=== PATIENT | female | born 1935 | race Caucasian/White ===

== ENCOUNTER → 2016-06-22 | Outpatient (CLI) | payer MEDICARE, OTHER | LOC: RAD 14:39 | PROVIDERS: ATTEND Internal Medicine | DX: C34.32 Malignant neoplasm of lower lobe, left bronchus or lung (principal) | CPT/HCPCS: 78815; A9552 ==

== ENCOUNTER 2016-08-11 08:36 | Observation (INO) | payer MEDICARE, OTHER ==
[2016-08-11] MEDS ORDERED: NORMAL SALINE 1000 ML 1,000 ML IV ONE ×2 (09:15→10:01)
--- NOTE | 2016-08-11 09:18 | ER Document Report ---
ED General - General Chief Complaint: Trouble Voiding Stated Complaint: UNABLE TO VOID Time seen by provider: 09:15 Mode of Arrival: Ambulatory Information source: Patient Notes: 80-year-old female with 2 week history of generalized weakness and nausea poor appetite 13 pound weight loss nonproductive cough and malaise. She also reports this morning having urinary urgency frequency and small volumes. Patient is status post chemotherapy for lymphoma which she says was cured. She also received chemotherapy for lung cancer and is currently receiving immunotherapy with Dr. Isatu LEO. She reports her last PET scan looks stable. She received IV fluids at the office of days ago which she said made her feel better for about a day and then she felt worse again. She has medicine at home for nausea and also been prescribed something for poor appetite but she says that has not helped. She denies fever, chills, vomiting, chest pain, abdominal pain, or back pain. Physical Exam: General: Alert, appears well. HEENT: Normocephalic. Atraumatic. PERRLA. Extraocular movements intact. Oropharynx clear. Neck: Supple. Non-tender. No JVD Respiratory: No respiratory distress. Clear and equal breath sounds bilaterally. Right chest port appears healthy Cardiovascular: Tachycardic and irregular without murmur Abdominal: Normal Inspection. Soft, non-tender. No distension. Normal Bowel Sounds. Back: Non-tender. No deformity or step off. Extremities: Moves all four extremities. Upper extremities: Normal inspection. Non-tender. Normal color. Normal ROM. Normal temperature. Lower extremities: Normal inspection. Non-tender. No edema. Normal color. Normal ROM. Normal temperature. Neurological: Speech clear mentation normal moves all extremities well Psychological: Normal affect. Normal Mood. Skin: Warm. Dry. Normal color. TRAVEL OUTSIDE OF THE [place] IN LAST 30 DAYS: No - Related Data Allergies/Adverse Reactions: No Known Allergies Allergy (Verified 12/18/15 09:38) Past Medical History - Social History Smoking Status: Former Smoker Family History: None - Past Medical History Cardiac Medical History: Reports: Hx Hypertension - on meds Denies: Hx Coronary Artery Disease, Hx Heart Attack Pulmonary Medical History: Denies: Hx Asthma, Hx Bronchitis, Hx COPD, Hx Pneumonia Neurological Medical History: Denies: Hx Cerebrovascular Accident, Hx Seizures GI Medical History: Reports: Hx Hepatitis - FROM BLOOD TRANSFUSION . Denies: Hx Hiatal Hernia, Hx Ulcer Musculoskeltal Medical History: Reports Hx Arthritis - min Infectious Medical History: Reports: Hx Hepatitis - FROM BLOOD TRANSFUSION Past Surgical History: Reports: Hx Appendectomy, Hx Hysterectomy, Hx Orthopedic Surgery - spinal. Denies: Hx Mastectomy, Hx Open Heart Surgery, Hx Pacemaker - Immunizations Hx Diphtheria, Pertussis, Tetanus Vaccination: Yes Hx Pneumococcal Vaccination: 03/08/15 Review of Systems - Review of Systems Constitutional: denies: Chills, Fever EENT: denies: Ear pain, Throat pain Cardiovascular: denies: Chest pain, Syncope Respiratory: Cough. denies: Short of breath Gastrointestinal: denies: Abdominal pain, Diarrhea, Blood in vomit, Black stools , Rectal bleeding Genitourinary: See HPI Female Genitourinary: denies: Musculoskeletal: denies: Back pain Hematologic/Lymphatic: denies: Swollen glands Neurological/Psychological: denies: Weakness, Numbness Physical Exam - Vital signs Vitals: Pulse Resp BP Pulse Ox 102 H 20 143/87 H 96 08/11/16 08:44 08/11/16 08:44 08/11/16 08:44 08/11/16 08:44 Course - Re-evaluation Re-evalutation: 08/11/16 13:28 Patient's presenting symptoms or urinary urgency and frequency but I find no evidence for UTI. She also reports small volumes with the plan may be dehydrated. She was noted on initial presentation be tachycardic and irregular an EKG showed A. fib RVR which spontaneously converted to a sinus tachycardia. However the patient then had recurrent atrial fibrillation and was started on IV Cardizem and on IV Cardizem has not converted back to sinus rhythm at 113. She has not been symptomatic with this at any point that I think some of her recent weakness and malaise may be silent A. fib. She is on Pletal but no other anticoagulation. A prior history of irregular heartbeat or cardiac problems. Have consult to Dr. Edouard of hospital service will be coming to see patient - Vital Signs Vital signs: Temp Pulse Resp BP Pulse Ox 102 H 20 143/87 H 96 08/11/16 08:44 08/11/16 09:05 08/11/16 08:44 08/11/16 08:44 - Laboratory Result Diagrams: 08/11/16 10:56 08/11/16 10:56 Laboratory results interpreted by me: 08/11/16 08/11/16 10:56 10:56 WBC 12.1 H RDW 15.1 H Seg Neutrophils % 79.0 H Lymphocytes % 11.4 L Absolute Neutrophils 9.6 H Carbon Dioxide 20 L Creatine Kinase 25 L - Diagnostic Test Radiology reviewed: Image reviewed, Reports reviewed - EKG Interpretation by Me Additional EKG results interpreted by me: 08/11/16 13:27 EKG #1 reviewed by myself shows atrial fibrillation ventricular rate of [address] changes Repeat EKG shows sinus tachycardia 106 but no acute changes third EKG shows atrial fibrillation with ventricular rate of [address] changes Discharge - Discharge Clinical Impression: Atrial fibrillation with rapid ventricular response Primary malignant neoplasm of lung metastatic to other site Qualifiers: Laterality: unspecified laterality Qualified Code(s): C34.90 - Malignant neoplasm of unspecified part of unspecified bronchus or lung Condition: Serious Disposition: ADMITTED INPATIENT Unit Admitted: Telemetry
[2016-08-11 10:27] LABS: APPEARANCE,URINE CLEAR; BILIRUBIN,URINE NEGATIVE (NEGATIVE); GLUCOSE, URINE NEGATIVE (NEGATIVE); KETONES,URINE NEGATIVE (NEGATIVE); LEUKOCYTE ESTERASE,URINE NEGATIVE (NEGATIVE); NITRITE,URINE NEGATIVE (NEGATIVE); PROTEIN,URINE NEGATIVE (NEGATIVE); URINE SPECIFIC GRAVITY 1.011; UROBILINOGEN,URINE NEGATIVE mg/dL (<2.0)
[2016-08-11 11:31] LABS: ABSOLUTE BASOPHILS # (AUTO) 0.1 10^3/uL (0.0-0.2); ABSOLUTE EOSINOPHILS # (AUTO) 0.1 10^3/uL (0.0-0.6); ABSOLUTE LYMPHOCYTES (AUTO) 1.4 10^3/uL (0.5-4.7); ABSOLUTE NEUT (AUTO) 9.6 10^3/uL (1.7-8.2); EOSINOPHILS % (AUTO) 0.5 % (0-6); HEMATOCRIT 36.1 % (36.0-47.0); HGB HCT DIFFERENCE -0.1; LYMPHOCYTES % (AUTO) 11.4 % (13-45); MEAN CORPUSCULAR HEMOGLOBIN 29.6 pg (27.0-33.4); MEAN CORPUSCULAR HGB CONC 33.3 g/dL (32.0-36.0); MEAN CORPUSCULAR VOLUME 89 fl (80-97); MONOCYTES % (AUTO) 8.1 % (3-13); RED BLOOD COUNT 4.05 10^6/uL (3.72-5.28); RED CELL DISTRIBUTION WIDTH 15.1 % (11.5-14.0); WHITE BLOOD COUNT 12.1 10^3/uL (4.0-10.5)
[2016-08-11 11:56] LABS: ALANINE AMINOTRANSFERASE 24 U/L (9-52); ALBUMIN 3.7 g/dL (3.5-5.0); ALKALINE PHOSPHATASE 58 U/L (38-126); ANION GAP 13 (5-19); ASPARTATE AMINO TRANSFERASE 17 U/L (14-36); BILIRUBIN,TOTAL 0.5 mg/dL (0.2-1.3); BLOOD UREA NITROGEN 14 mg/dL (7-20); CALCIUM 9.1 mg/dL (8.4-10.2); CARBON DIOXIDE 20 mmol/L (22-30); CHLORIDE 107 mmol/L (98-107); CREATINE KINASE 25 U/L (30-135); CREATININE RESULT 0.61 mg/dL (0.52-1.25); GLUCOSE 86 mg/dL (75-110); LIPASE 40.6 U/L (23-300); MAGNESIUM 1.8 mg/dL (1.6-2.3); POTASSIUM 4.3 mmol/L (3.6-5.0); SODIUM 139.9 mmol/L (137-145); TOTAL PROTEIN 6.4 g/dL (6.3-8.2)
[2016-08-11 12:02] LABS: CREATINE KINASE MB 0.38 ng/mL (<4.55)
[2016-08-11] MEDS ORDERED: MAGNESIUM SULFATE/D5W 100 ML IV ONE (12:02)
[2016-08-11 12:07] LABS: TROPONIN I < 0.012 ng/mL
[2016-08-11] MEDS ORDERED: DILTIAZEM HCL INJ 25 MG/5 ML VIAL IV ONE (13:00)
[2016-08-11] MEDS ORDERED: DILTIAZEM HCL/D5W 125 ML IV PRN (13:00)
[2016-08-11] MEDS ORDERED: ACETAMINOPHEN 325 MG TABLET PO PRN (14:17)
[2016-08-11] MEDS ORDERED: ONDANSETRON 4 MG TAB.RAPDIS PO PRN (14:17)
[2016-08-11] MEDS ORDERED: ONDANSETRON HCL INJ/PF 4 MG/2 ML SDV IV PRN (14:17)
--- NOTE | 2016-08-11 14:37 | PDOC H&P ---
History of Present Illness Admission Date/PCP: 08/11/16 14:10 ALLISON ANDRES MD Patient complains of: Difficulty urinating History of Present Illness: ALIN MENDIOLA is a 80 year old female who has metastatic adenocarcinoma of the lung who presented with 2 weeks of feeling poorly with being dizzy and having generalized fatigue. The patient reports that she was in her oncologist office last Thursday and received IV fluids. She presented to the emergency room today because she was unable to urinate and felt there was something wrong. After she was seen by the emergency room physician it was noted that she had a heart rate of 170 and was in atrial fibrillation with rapid ventricular rate. Patient was started on diltiazem drip and has converted into a normal sinus rhythm. The patient denies having any sensation of the tachycardia. Denies any palpitations or chest pain. Denies orthopnea, PND or dyspnea on exertion. She is getting chemotherapy in the form of immunotherapy by Dr. Andres and is due for her next chemotherapy on Thursday. Past Medical History Cardiac Medical History: Reports: Hypertension - on meds Denies: Coronary Artery Disease, Myocardial Infarction Pulmonary Medical History: Denies: Asthma, Bronchitis, Chronic Obstructive Pulmonary Disease (COPD), Pneumonia EENT Medical History: Reports: None Neurological Medical History: Denies: Seizures Endocrine Medical History: Reports: Hypothyroidism Renal/ Medical History: Reports: None Malignancy Medical History: Reports: Lung Cancer, Lymphoma, Skin Cancer GI Medical History: Reports: Hepatitis - FROM BLOOD TRANSFUSION Denies: Hiatal Hernia Musculoskeltal Medical History: Reports: Arthritis - min Psychiatric Medical History: Reports: None Hematology: Reports: Anemia - RECENT IV IRON Denies: Sickle Cell Disease Infectious Medical History: Reports: None Past Surgical History Past Surgical History: Reports: Appendectomy, Hysterectomy, Orthopedic Surgery - spinal Denies: Amputation, Pacemaker Social History Information Source: Patient Lives with: Family Smoking Status: Former Smoker Frequency of Alcohol Use: None Hx Recreational Drug Use: No Drugs: None - Advance Directive Resuscitation Status: Do Not Resuscitate Family History Family History: Mother at age 88 and had Alzheimer's disease. Father at age 80 from unknown causes. Parental Family History Reviewed: Yes Children Family History Reviewed: No Sibling(s) Family History Reviewed.: No Medication/Allergy Home Medications: Cilostazol [Pletal 100 Mg Tablet] 100 mg PO BID 03/25/12 Levothyroxine Sodium [Synthroid 0.075 mg Tablet] 0.075 mg PO DAILY 03/25/12 Lisinopril [Prinivil] 20 mg PO DAILY 12/18/15 Allergies/Adverse Reactions: No Known Allergies Allergy (Verified 12/18/15 09:38) Review of Systems Constitutional: PRESENT: fatigue, weakness, weight loss. ABSENT: anorexia, fever(s), headache(s), night sweats Eyes: ABSENT: visual disturbances Ears: ABSENT: hearing changes Cardiovascular: PRESENT: as per HPI Respiratory: PRESENT: cough. ABSENT: dyspnea, hemoptysis, sputum Gastrointestinal: ABSENT: abdominal pain, constipation, diarrhea, hematemesis, hematochezia, nausea, vomiting Genitourinary: PRESENT: difficulty urinating Musculoskeletal: PRESENT: back pain Integumentary: ABSENT: rash, wounds Neurological: ABSENT: abnormal gait, abnormal speech, confusion, dizziness, focal weakness, syncope Psychiatric: ABSENT: anxiety, depression Endocrine: ABSENT: cold intolerance, heat intolerance, polydipsia, polyuria Hematologic/Lymphatic: ABSENT: easy bleeding, easy bruising Physical Exam Vital Signs: Temp Pulse Resp BP Pulse Ox 102 H 22 H 151/79 H 97 08/11/16 08:44 08/11/16 13:37 08/11/16 13:37 08/11/16 13:37 General appearance: PRESENT: no acute distress, well-developed, well-nourished Head exam: PRESENT: atraumatic, normocephalic Eye exam: PRESENT: conjunctiva pink, EOMI, PERRLA. ABSENT: scleral icterus Ear exam: PRESENT: normal external ear exam Mouth exam: PRESENT: moist, tongue midline Neck exam: ABSENT: carotid bruit, JVD, lymphadenopathy, thyromegaly Respiratory exam: PRESENT: clear to auscultation ranjeet. ABSENT: rales, rhonchi, wheezes Cardiovascular exam: PRESENT: RRR. ABSENT: diastolic murmur, rubs, systolic murmur Pulses: PRESENT: normal dorsalis pedis pul Vascular exam: PRESENT: normal capillary refill GI/Abdominal exam: PRESENT: normal bowel sounds, soft. ABSENT: distended, guarding, mass, organolmegaly, rebound, tenderness Rectal exam: PRESENT: deferred Extremities exam: ABSENT: calf tenderness, clubbing, pedal edema Neurological exam: PRESENT: alert, awake, oriented to person, oriented to place , oriented to time, oriented to situation, CN II-XII grossly intact. ABSENT: motor sensory deficit Psychiatric exam: PRESENT: appropriate affect, normal mood Skin exam: PRESENT: dry, intact, warm. ABSENT: cyanosis, rash Results Impressions: Chest X-Ray 08/11/16 09:14 IMPRESSION: NO ACUTE RADIOGRAPHIC FINDING IN THE CHEST. Assessment & Plan - Diagnosis (1) Atrial fibrillation with RVR Is this a current diagnosis for this admission?: YesPlan: Patient presented with urinary hesitancy and had no complaints related to her atrial fibrillation other than fatigue. The patient was started on diltiazem drip and has converted to normal sinus rhythm. We will DC the diltiazem drip and start on oral Cardizem at 30 mg every 6 hours. If she remains a normal sinus rhythm overnight we'll plan for discharge home tomorrow. We'll check serial cardiac enzymes to make certain she has not had an acute cardiac event. We'll also start the patient on Xarelto. (2) Metastatic lung cancer (metastasis from lung to other site) Qualifiers: Laterality: unspecified laterality Qualified Code(s): C34.90 - Malignant neoplasm of unspecified part of unspecified bronchus or lung Is this a current diagnosis for this admission?: YesPlan: Patient has been getting immunotherapy with Dr. Andres (3) Lymphoma Is this a current diagnosis for this admission?: YesPlan: Patient has a history of lymphoma in the past. (4) Hypertension Is this a current diagnosis for this admission?: YesPlan: We'll continue with her lisinopril she's been taking as an outpatient in addition she'll take the diltiazem. (5) Hypothyroidism Is this a current diagnosis for this admission?: YesPlan: Continue with Synthroid (6) Urinary hesitancy Is this a current diagnosis for this admission?: YesPlan: The patient's presenting complaint was urinary hesitancy. Her urinalysis looks fine and we will observe overnight. If She continues to have problems we can consult urology as an outpatient. - Time Time Spent: 50 to 70 Minutes - Plan Summary Plan Summary: Will admit as observation as I anticipate this will require less than a 2 midnight hospital stay
[2016-08-11] MEDS: DILTIAZEM HCL 30 MG TABLET PO SCH ×2 (14:52→20:41)
[2016-08-11] MEDS ORDERED: LISINOPRIL 10 MG TABLET PO ONE (15:00)
[2016-08-11] MEDS: CILOSTAZOL 100 MG TABLET PO SCH (16:38)
[2016-08-11] MEDS ORDERED: RIVAROXABAN 10 MG TABLET PO SCH (17:00)
[2016-08-11] MEDS ORDERED: RIVAROXABAN 15 MG TABLET PO SCH (17:00)
--- NOTE | 2016-08-11 17:06 | PDOC CONSULTATION ---
Consultation Consult Date: 08/11/16 Attending physician:: OSVALDO LU Consult reason:: Pt here w/ AFIB w/ RVR w/ known hx of stage IV lung ca History of Present Illness Admission Date/PCP: 08/11/16 14:10 ALLISON ANDRES MD Patient complains of: Fatigue, SOB, tachycardia History of Present Illness: 80-year-old female with known history of stage IV lung cancer, she has been on immunotherapy with OPDIVO, tolerating that well. At times is had hypomagnesemia , treated with IV magnesium. This is been caused by the drug at times. She does have bone metastasis. She's been doing very well with treatment, getting a good clinical response thus far. 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 Over the last 2 week she's been having increasing fatigue, initially I felt this was immunotherapy affect, but this morning she got up and really couldn't take even a few steps without severe fatigue, so her daughter brought her in to [facility] care. Here, she was found to be in A. fib with RVR, she was given IV diltiazem, and soon she was brought into a normal sinus rhythm, she's been placed on oral Cardizem now, and there monitoring her closely. Past Medical History Cardiac Medical History: Reports: Hypertension - on meds Denies: Coronary Artery Disease, Myocardial Infarction Pulmonary Medical History: Denies: Asthma, Bronchitis, Chronic Obstructive Pulmonary Disease (COPD), Pneumonia EENT Medical History: Reports: None Neurological Medical History: Denies: Seizures Endocrine Medical History: Reports: Hypothyroidism Renal/ Medical History: Reports: None Malignancy Medical History: Reports: Lung Cancer, Lymphoma, Skin Cancer GI Medical History: Reports: Hepatitis - FROM BLOOD TRANSFUSION Denies: Hiatal Hernia Musculoskeltal Medical History: Reports: Arthritis - min Psychiatric Medical History: Reports: None Hematology: Reports: Anemia - RECENT IV IRON Denies: Sickle Cell Disease Infectious Medical History: Reports: None Past Surgical History Past Surgical History: Reports: Appendectomy, Hysterectomy, Orthopedic Surgery - spinal Denies: Amputation, Mastectomy, Pacemaker Social History Lives with: Family Smoking Status: Former Smoker Frequency of Alcohol Use: None Hx Recreational Drug Use: No Drugs: None - Advance Directive Resuscitation Status: Do Not Resuscitate Family History Family History: None Parental Family History Reviewed: Yes Children Family History Reviewed: Yes Sibling(s) Family History Reviewed.: Yes Medication/Allergy Home Medications: Cilostazol [Pletal 100 mg Tablet] 100 mg PO Q12 08/11/16 Hydrocodone/Acetaminophen [[place] 5-325 mg Tablet] 1 tab PO Q6HP PRN 08/11/16 Levothyroxine Sodium [Synthroid 0.075 mg Tablet] 75 mcg PO DAILY 08/11/16 Lisinopril [Prinivil 10 mg Tablet] 10 mg PO DAILY 08/11/16 Allergies/Adverse Reactions: No Known Allergies Allergy (Verified 12/18/15 09:38) Review of Systems Constitutional: PRESENT: fatigue, weakness Cardiovascular: PRESENT: palpitations Gastrointestinal: ABSENT: abdominal pain, constipation, diarrhea, hematemesis, hematochezia, nausea, vomiting Musculoskeletal: PRESENT: muscle weakness, other - Hip pain Neurological: ABSENT: abnormal gait, abnormal speech, confusion, dizziness, focal weakness, syncope Physical Exam Vital Signs: Temp Pulse Resp BP Pulse Ox 97.8 F 97 16 175/76 H 100 08/11/16 16:11 08/11/16 16:11 08/11/16 16:11 08/11/16 16:11 08/11/16 16:11 General appearance: PRESENT: no acute distress, well-developed, well-nourished Head exam: PRESENT: atraumatic, normocephalic Eye exam: PRESENT: conjunctiva pink, EOMI, PERRLA. ABSENT: scleral icterus Ear exam: PRESENT: normal external ear exam Mouth exam: PRESENT: moist, tongue midline Neck exam: ABSENT: carotid bruit, JVD, lymphadenopathy, thyromegaly Respiratory exam: PRESENT: clear to auscultation ranjeet. ABSENT: rales, rhonchi, wheezes Cardiovascular exam: PRESENT: RRR. ABSENT: diastolic murmur, rubs, systolic murmur Pulses: PRESENT: normal dorsalis pedis pul Vascular exam: PRESENT: normal capillary refill GI/Abdominal exam: PRESENT: normal bowel sounds, soft. ABSENT: distended, guarding, mass, organolmegaly, rebound, tenderness Rectal exam: PRESENT: deferred Extremities exam: PRESENT: full ROM. ABSENT: calf tenderness, clubbing, pedal edema Neurological exam: PRESENT: alert, awake, oriented to person, oriented to place , oriented to time, oriented to situation, CN II-XII grossly intact. ABSENT: motor sensory deficit Psychiatric exam: PRESENT: appropriate affect, normal mood. ABSENT: homicidal ideation, suicidal ideation Skin exam: PRESENT: dry, intact, warm. ABSENT: cyanosis, rash Results Impressions: Chest X-Ray 08/11/16 09:14 IMPRESSION: NO ACUTE RADIOGRAPHIC FINDING IN THE CHEST. Assessment & Plan - Diagnosis (1) Atrial fibrillation with RVR Is this a current diagnosis for this admission?: YesPlan: Probably unrelated the immunotherapy, the only issue would be that she does get hypomagnesemic with immunotherapy, but all the chemistry seems stable when she came in. Continue per hospitalist team. (2) Metastatic lung cancer (metastasis from lung to other site) Qualifiers: Laterality: left Qualified Code(s): C34.92 - Malignant neoplasm of unspecified part of left bronchus or lung Is this a current diagnosis for this admission?: YesPlan: Stage IV lung cancer, on immunotherapy, she is due for immunotherapy this week but we will make arrangements to treat her next week. - Time Time Spent: Greater than 70 Minutes Critical Time spent with patient: 35 or more minutes - Inpatient Certification Based on my medical assessment, after consideration of the patient's comorbidities, presenting symptoms, or acuity I expect that the services needed warrant INPATIENT care.: Yes I certify that my determination is in accordance with my understanding of Medicare's requirements for reasonable and necessary INPATIENT services [42 CFR 412.3e].: Yes Medical Necessity: Need For Continuous Telemetry Monitoring
[2016-08-11 18:41] LABS: TROPONIN I < 0.012 ng/mL
[2016-08-11] MEDS: HYDROCODONE/ACETAMINOPHEN 5-325 MG TABLET PO PRN (20:40)
--- NOTE | 2016-08-11 20:50 | EKG REPORT ---
SEVERITY:- ABNORMAL ECG - ATRIAL FIBRILLATION WITH RAPID V-RATE LOW VOLTAGE THROUGHOUT BORDERLINE T ABNORMALITIES, INFERIOR LEADS : Confirmed by: Fatuma Avalos 11-Aug-2016 20:50:02
--- NOTE | 2016-08-11 20:51 | EKG REPORT ---
SEVERITY:- ABNORMAL ECG - SINUS TACHYCARDIA PROBABLE LEFT ATRIAL ABNORMALITY LOW VOLTAGE THROUGHOUT BORDERLINE T ABNORMALITIES, INFERIOR LEADS : Confirmed by: Fatuma Avalos 11-Aug-2016 20:50:14
--- NOTE | 2016-08-11 20:51 | EKG REPORT ---
SEVERITY:- ABNORMAL ECG - ATRIAL FIBRILLATION WITH RAPID V-RATE : Confirmed by: Fatuma Avalos 11-Aug-2016 20:50:23
[2016-08-11 23:29] LABS: TROPONIN I < 0.012 ng/mL
[2016-08-12] MEDS: DILTIAZEM HCL 30 MG TABLET PO SCH ×2 (02:30→09:00)
[2016-08-12 03:13] LABS: CREATINE KINASE MB 0.38 ng/mL (<4.55)
[2016-08-12 03:14] LABS: TROPONIN I < 0.012 ng/mL
[2016-08-12] MEDS: HYDROCODONE/ACETAMINOPHEN 5-325 MG TABLET PO PRN (05:14)
[2016-08-12 05:50] LABS: HEMATOCRIT 29.7 % (36.0-47.0); HGB HCT DIFFERENCE 0.9; MEAN CORPUSCULAR HEMOGLOBIN 30.6 pg (27.0-33.4); MEAN CORPUSCULAR HGB CONC 34.2 g/dL (32.0-36.0); MEAN CORPUSCULAR VOLUME 90 fl (80-97); RED BLOOD COUNT 3.32 10^6/uL (3.72-5.28); WHITE BLOOD COUNT 8.3 10^3/uL (4.0-10.5)
[2016-08-12 06:01] LABS: HEMOGLOBIN 10.2 g/dL (12.0-15.5)
[2016-08-12 06:03] LABS: ANION GAP 9 (5-19); BLOOD UREA NITROGEN 9 mg/dL (7-20); CALCIUM 8.4 mg/dL (8.4-10.2); CARBON DIOXIDE 20 mmol/L (22-30); CHLORIDE 113 mmol/L (98-107); CREATININE RESULT 0.59 mg/dL (0.52-1.25); GLUCOSE 91 mg/dL (75-110); MAGNESIUM 1.9 mg/dL (1.6-2.3); POTASSIUM 3.9 mmol/L (3.6-5.0); SODIUM 141.7 mmol/L (137-145)
--- NOTE | 2016-08-12 07:52 | PDOC PROGRESS REPORT ---
Subjective Progress Note for:: 08/12/16 Subjective:: Pt feels great this am, ready to d/c home, no further afib Physical Exam Vital Signs: Temp Pulse Resp BP Pulse Ox 98.3 F 83 18 127/64 H 98 08/12/16 04:00 08/12/16 04:00 08/12/16 04:00 08/12/16 04:00 08/12/16 04:00 Intake & Output 08/11/16 08/12/16 08/13/16 06:59 06:59 06:59 Intake Total 505 Output Total 5 Balance 500 Weight 46.7 kg General appearance: PRESENT: no acute distress, well-developed, well-nourished Head exam: PRESENT: atraumatic, normocephalic Eye exam: PRESENT: conjunctiva pink, EOMI, PERRLA. ABSENT: scleral icterus Ear exam: PRESENT: normal external ear exam Mouth exam: PRESENT: moist, tongue midline Neck exam: ABSENT: carotid bruit, JVD, lymphadenopathy, thyromegaly Respiratory exam: PRESENT: clear to auscultation ranjeet. ABSENT: rales, rhonchi, wheezes Cardiovascular exam: PRESENT: RRR. ABSENT: diastolic murmur, rubs, systolic murmur Pulses: PRESENT: normal dorsalis pedis pul Vascular exam: PRESENT: normal capillary refill GI/Abdominal exam: PRESENT: normal bowel sounds, soft. ABSENT: distended, guarding, mass, organolmegaly, rebound, tenderness Rectal exam: PRESENT: deferred Extremities exam: PRESENT: full ROM. ABSENT: calf tenderness, clubbing, pedal edema Neurological exam: PRESENT: alert, awake, oriented to person, oriented to place , oriented to time, oriented to situation, CN II-XII grossly intact. ABSENT: motor sensory deficit Psychiatric exam: PRESENT: appropriate affect, normal mood. ABSENT: homicidal ideation, suicidal ideation Skin exam: PRESENT: dry, intact, warm. ABSENT: cyanosis, rash Results Laboratory Results: 08/12/16 05:17 08/12/16 05:17 08/12/16 08/12/16 05:17 05:17 WBC 8.3 RBC 3.32 L Hgb 10.2 L Hct 29.7 L MCV 90 MCH 30.6 MCHC 34.2 RDW 15.0 H Plt Count 295 Sodium 141.7 Potassium 3.9 Chloride 113 H Carbon Dioxide 20 L Anion Gap 9 BUN 9 Creatinine 0.59 Est GFR ( Amer) > 60 Est GFR (Non-Af Amer) > 60 Glucose 91 Calcium 8.4 Magnesium 1.9 08/11/16 08/11/16 08/11/16 17:55 17:55 22:50 Creatine Kinase 25 L 27 L CK-MB (CK-2) 0.30 Troponin I < 0.012 08/11/16 08/12/16 08/12/16 22:50 02:37 02:37 Creatine Kinase 26 L CK-MB (CK-2) 0.40 0.38 Troponin I < 0.012 < 0.012 Impressions: Chest X-Ray 08/11/16 09:14 IMPRESSION: NO ACUTE RADIOGRAPHIC FINDING IN THE CHEST. Assessment & Plan - Diagnosis (1) Atrial fibrillation with RVR Is this a current diagnosis for this admission?: YesPlan: Seems well controlled on cardizem, pt also has been started on xarelto for stroke prevention, should be able to d/c home on oral cardizem today per hospitalist team (2) Metastatic lung cancer (metastasis from lung to other site) Qualifiers: Laterality: left Qualified Code(s): C34.92 - Malignant neoplasm of unspecified part of left bronchus or lung Is this a current diagnosis for this admission?: YesPlan: Will see us next week for continued immunotx w/ OPDIVO, will not need OV this week with us. - Time Time Spent with patient: 25-34 minutes Critical Time spent with patient: 25-34 minutes Anticipated discharge: Home
[2016-08-12] MEDS ORDERED: LEVOTHYROXINE SODIUM 0.075 MG TABLET PO SCH (08:00)
[2016-08-12] MEDS: CILOSTAZOL 100 MG TABLET PO SCH (09:01)
[2016-08-12] MEDS ORDERED: (PENDING PHARMACY ID) (Lisinopril [Prinivil] 10 MG) PO SCH (10:00)
[2016-08-12] MEDS ORDERED: LISINOPRIL 10 MG TABLET PO SCH (10:00)
--- NOTE | 2016-08-12 12:02 | PDOC DISCHARGE SUMMARY ---
General - Admit/Disc Date/PCP Admission Date/Primary Care Provider: 08/11/16 14:10 ALLISON ANDRES MD Discharge Date: 08/12/16 - Discharge Diagnosis (1) Atrial fibrillation with RVR Is this a current diagnosis for this admission?: Yes (2) Anemia of chronic disease Is this a current diagnosis for this admission?: Yes (3) Hypertension Is this a current diagnosis for this admission?: Yes (4) Hypothyroidism Is this a current diagnosis for this admission?: Yes (5) Metastatic lung cancer (metastasis from lung to other site) Is this a current diagnosis for this admission?: Yes - Additional Information Resuscitation Status: Do Not Resuscitate Discharge Diet: Cardiac - low-fat low-salt Discharge Activity: Activity As Tolerated, Balance Activity w/Rest Home Medications: Cilostazol [Pletal 100 mg Tablet] 100 mg PO Q12 08/11/16 Hydrocodone/Acetaminophen [[place] 5-325 mg Tablet] 1 tab PO Q6HP PRN 08/11/16 Levothyroxine Sodium [Synthroid 0.075 mg Tablet] 75 mcg PO DAILY 08/11/16 Lisinopril [Prinivil 10 mg Tablet] 10 mg PO DAILY 08/11/16 Diltiazem HCl [Cardizem Cd 120 mg Capsule] 1 cap.sr PO DAILY #30 cap.sr Rivaroxaban [Xarelto 15 mg Tablet] 15 mg PO WSUPPER #30 tablet 08/12/16 Additional Information: Return to the emergency room if symptoms recur History of Present Illness Patient complains of: Generalized weakness and fatigue, dizziness History of Present Illness: ALIN MENDIOLA is a 80 year old female, with metastatic lung cancer to the bones, hypothyroidism has been feeling unwell for the past 2 weeks with generalized malaise and fatigue. Patient is on chemotherapy with immunotherapy. Patient was last seen by her oncologist last week and in the office nor reported tachycardia. Patient presented in the ER with tachycardia and was given Cardizem and eventually went back to sinus. Patient was started on oral Cardizem, and 15 mg of Xarelto and was subsequently admitted. For details please refer to history and physical examination performed by the admitting physician. Hospital Course Hospital Course: The patient was admitted to observation. Dr. Andres was consulted for the lung cancer. He does not think that the patient's symptoms were related to the immunotherapy. Patient was in sinus rhythm and all throughout has been stable while in the [place]. He was maintained on oral Cardizem and begun on xarelto. He was therefore counseled and advised about signs and symptoms of bleeding and she understood. Family is at bedside who will also monitor the patient and understood it as well. She wanted to go home today and just continue treatment on an outpatient basis. The rest of the hospital stay is unremarkable. Physical Exam Vital Signs: Temp Pulse Resp BP Pulse Ox 98.3 F 77 18 147/84 H 99 08/12/16 07:24 08/12/16 07:24 08/12/16 07:24 08/12/16 07:24 08/12/16 07:24 Intake & Output 08/11/16 08/12/16 08/13/16 06:59 06:59 06:59 Intake Total 505 Output Total 5 Balance 500 Weight 46.7 kg General appearance: PRESENT: no acute distress, cooperative Head exam: PRESENT: normocephalic Eye exam: PRESENT: EOMI Mouth exam: PRESENT: moist, neck supple Neck exam: ABSENT: JVD Respiratory exam: PRESENT: clear to auscultation rajneet Cardiovascular exam: PRESENT: RRR GI/Abdominal exam: PRESENT: soft. ABSENT: distended, tenderness Extremities exam: ABSENT: pedal edema Neurological exam: PRESENT: alert, awake, oriented to person, oriented to place , oriented to time, oriented to situation Skin exam: PRESENT: dry, warm. ABSENT: cyanosis Results Laboratory Results: 08/12/16 05:17 08/12/16 05:17 08/12/16 08/12/16 05:17 05:17 WBC 8.3 RBC 3.32 L Hgb 10.2 L Hct 29.7 L MCV 90 MCH 30.6 MCHC 34.2 RDW 15.0 H Plt Count 295 Sodium 141.7 Potassium 3.9 Chloride 113 H Carbon Dioxide 20 L Anion Gap 9 BUN 9 Creatinine 0.59 Est GFR ( Amer) > 60 Est GFR (Non-Af Amer) > 60 Glucose 91 Calcium 8.4 Magnesium 1.9 08/11/16 08/11/16 08/11/16 17:55 17:55 22:50 Creatine Kinase 25 L 27 L CK-MB (CK-2) 0.30 Troponin I < 0.012 0308/12/16 08/12/16 22:50 02:37 02:37 Creatine Kinase 26 L CK-MB (CK-2) 0.40 0.38 Troponin I < 0.012 < 0.012 Impressions: Chest X-Ray 08/11/16 09:14 IMPRESSION: NO ACUTE RADIOGRAPHIC FINDING IN THE CHEST. Qualifiers PATEINT BEING DISCHARGED WITH ANY OF THE FOLLOWING DIAGNOSIS?: No Plan Discharge Plan: Follow-up with primary care physician in a week. Time Spent: Less than 30 Minutes
[2016-08-12 12:08] VITALS: BP 175/76
--- NOTE | 2016-08-12 13:01 | EKG REPORT ---
SEVERITY:- BORDERLINE ECG - SINUS RHYTHM ATRIAL PREMATURE COMPLEX SHORT DE INTERVAL, ACCELERATED AV CONDUCTION LOW VOLTAGE IN FRONTAL LEADS : Confirmed by: Fatuma Avalos 12-Aug-2016 12:59:33
== END 2016-08-12 12:27 | disposition home or self-care (01) ==
LOC: ER 08:36 → INTOOBSV 14:10 → EH 14:10 → 3N 15:48
PROVIDERS: ADMIT Family Medicine; ATTEND Family Medicine
PROC: 3E033GC Introduction of Other Therapeutic Substance into Peripheral Vein, Percutaneous Approach (ICD-10-PCS; principal; 2016-08-11)
DX: I48.91 Unspecified atrial fibrillation (principal); D63.8 Anemia in other chronic diseases classified elsewhere; I10 Essential (primary) hypertension; E03.9 Hypothyroidism, unspecified; C34.90 Malignant neoplasm of unspecified part of unspecified bronchus or lung; C79.51 Secondary malignant neoplasm of bone; Z85.72 Personal history of non-Hodgkin lymphomas; Z87.891 Personal history of nicotine dependence; R39.11 Hesitancy of micturition
CPT/HCPCS: 93005 ×2; 99285; 96365; 36415 ×2; 87040; 87086; 82553 ×2; 82550 ×2; 83690; 83735 ×2; 85025; 85027; 80048; 80053; 81001; 84484 ×2; 71020; 93010 ×2; G0378 ×3; A9270 ×10; J3490 ×4; J3475; J7030

== ENCOUNTER 2016-08-26 11:12 | Observation (INO) | payer MEDICARE, OTHER ==
[2016-08-26] MEDS ORDERED: DILTIAZEM HCL/D5W 125 MG/125 ML RTUINJ IV ONE (11:24)
[2016-08-26] MEDS ORDERED: DILTIAZEM HCL INJ 25 MG/5 ML VIAL ONE (11:24)
[2016-08-26 12:28] LABS: ABSOLUTE BASOPHILS # (AUTO) 0.1 10^3/uL (0.0-0.2); ABSOLUTE LYMPHOCYTES (AUTO) 1.1 10^3/uL (0.5-4.7); ABSOLUTE MONOCYTES (AUTO) 0.7 10^3/uL (0.1-1.4); ABSOLUTE NEUT (AUTO) 10.6 10^3/uL (1.7-8.2); BASOPHILS % (AUTO) 0.9 % (0-2); EOSINOPHILS % (AUTO) 0.3 % (0-6); HEMATOCRIT 36.9 % (36.0-47.0); HEMOGLOBIN 12.4 g/dL (12.0-15.5); HGB HCT DIFFERENCE 0.3; MEAN CORPUSCULAR HEMOGLOBIN 30.1 pg (27.0-33.4); MEAN CORPUSCULAR HGB CONC 33.6 g/dL (32.0-36.0); MEAN CORPUSCULAR VOLUME 90 fl (80-97); MONOCYTES % (AUTO) 5.8 % (3-13); RED BLOOD COUNT 4.12 10^6/uL (3.72-5.28); RED CELL DISTRIBUTION WIDTH 15.3 % (11.5-14.0); WHITE BLOOD COUNT 12.7 10^3/uL (4.0-10.5)
--- NOTE | 2016-08-26 12:35 | ER Document Report ---
ED General - General Chief Complaint: Palpitations Stated Complaint: PALPITATIONS Mode of Arrival: Ambulatory Information source: Patient, Dr. Office Notes: 80 yr old female with hx of afib diagnosed 2 weeks ago started on Cardizem at home with xarelto presents with not feeling well over the past few days, once her power plant superintendent today who noted her heart rate was in the 170s and sent the patient in to the emergency department for evaluation TRAVEL OUTSIDE OF THE [place] IN LAST 30 DAYS: No - HPI Onset: Other - Three-day duration Onset/Duration: Persistent Quality of pain: No pain Severity: Mild Pain Level: Denies Associated symptoms: Other Exacerbated by: Denies Relieved by: Denies Similar symptoms previously: Yes Recently seen / treated by doctor: Yes - Related Data Allergies/Adverse Reactions: No Known Allergies Allergy (Verified 12/18/15 09:38) Past Medical History - Social History Smoking Status: Never Smoker Cigarette use (# per day): No Chew tobacco use (# tins/day): No Smoking Education Provided: No Family History: None - Past Medical History Cardiac Medical History: Reports: Hx Hypertension - on meds Denies: Hx Coronary Artery Disease, Hx Heart Attack Pulmonary Medical History: Denies: Hx Asthma, Hx Bronchitis, Hx COPD, Hx Pneumonia Neurological Medical History: Denies: Hx Cerebrovascular Accident, Hx Seizures Endocrine Medical History: Reports: Hx Hypothyroidism Malignancy Medical History: Reports: Hx Lung Cancer, Hx Lymphoma, Hx Skin Cancer GI Medical History: Reports: Hx Hepatitis - FROM BLOOD TRANSFUSION . Denies: Hx Hiatal Hernia, Hx Ulcer Musculoskeltal Medical History: Reports Hx Arthritis - min Psychiatric Medical History: Reports: Hx Depression Infectious Medical History: Reports: Hx Hepatitis - FROM BLOOD TRANSFUSION Past Surgical History: Reports: Hx Appendectomy, Hx Hysterectomy, Hx Orthopedic Surgery - spinal. Denies: Hx Mastectomy, Hx Open Heart Surgery, Hx Pacemaker - Immunizations Hx Diphtheria, Pertussis, Tetanus Vaccination: Yes Hx Pneumococcal Vaccination: 03/08/15 Review of Systems - Review of Systems Notes: REVIEW OF SYSTEMS: CONSTITUTIONAL : Denies fever, chills, or sweats. Denies recent illness. Admits to not feeling well EENT: Denies eye, ear, throat, or mouth pain or symptoms. Denies nasal or sinus congestion or discharge. Denies throat, tongue, or mouth swelling or difficulty swallowing. CARDIOVASCULAR: Denies chest pain. Denies palpitations or racing or irregular heart beat. Denies ankle edema. RESPIRATORY: Denies cough, cold, or chest congestion. Denies shortness of breath, difficulty breathing, or wheezing. GASTROINTESTINAL: Denies abdominal pain or distention. Denies nausea, vomiting , or diarrhea. Denies blood in vomitus, stools, or per rectum. Denies black, tarry stools. Denies constipation. GENITOURINARY: Denies difficulty urinating, painful urination, burning, frequency, blood in urine, or discharge. FEMALE GENITOURINARY: Denies vaginal bleeding, heavy or abnormal periods, irregular periods. Denies vaginal discharge or odor. MUSCULOSKELETAL: Denies back or neck pain or stiffness. Denies joint pain or swelling. SKIN: Denies rash, lesions or sores. HEMATOLOGIC : Denies easy bruising or bleeding. LYMPHATIC: Denies swollen, enlarged glands. NEUROLOGICAL: Denies confusion or altered mental status. Denies passing out or loss of consciousness. Denies dizziness or lightheadedness. Denies headache. Denies weakness or paralysis or loss of use of either side. Denies problems with gait or speech. Denies sensory loss, numbness, or tingling. Denies seizures. PSYCHIATRIC: Denies anxiety or stress. Denies depression, suicidal ideation, or homicidal ideation. ALL OTHER SYSTEMS REVIEWED AND NEGATIVE. Dictation was performed using [employer] voice recognition software PHYSICAL EXAMINATION: GENERAL: Well-appearing, well-nourished and in no acute distress. HEAD: Atraumatic, normocephalic. EYES: Pupils equal round and reactive to light, extraocular movements intact, conjunctiva are normal. ENT: Nares patent, oropharynx clear without exudates. Moist mucous membranes. NECK: Normal range of motion, supple without lymphadenopathy LUNGS: Breath sounds clear to auscultation bilaterally and equal. No wheezes rales or rhonchi. HEART: A. fib RVR ABDOMEN: Soft, nontender, nondistended abdomen. No guarding, no rebound. No masses appreciated. Female : deferred Musculoskeletal: Normal range of motion, no pitting or edema. No cyanosis. NEUROLOGICAL: Cranial nerves grossly intact. Normal speech, normal gait. Normal sensory, motor exams PSYCH: Normal mood, normal affect. SKIN: Warm, Dry, normal turgor, no rashes or lesions noted. Physical Exam - Vital signs Vitals: Temp Pulse Resp BP Pulse Ox 98.3 F 93 18 110/81 99 08/26/16 11:22 08/26/16 11:22 08/26/16 11:22 08/26/16 11:22 08/26/16 11:22 Course - Re-evaluation Re-evalutation: 08/26/16 12:46 Patient noted to have a heart rate up to 180s, was given a Cardizem bolus which immediately improved her heart rate. I expect this to be uncontrolled A. fib. Patient will be admitted to hospital service for evaluation - Vital Signs Vital signs: Temp Pulse Resp BP Pulse Ox 98.3 F 93 16 95/47 L 94 08/26/16 11:22 08/26/16 11:22 08/26/16 12:36 08/26/16 12:36 08/26/16 12:36 - Laboratory Result Diagrams: 08/26/16 11:40 08/26/16 11:40 Laboratory results interpreted by me: 08/26/16 11:40 WBC 12.7 H RDW 15.3 H Seg Neutrophils % 84.0 H Lymphocytes % 9.0 L Absolute Neutrophils 10.6 H - Diagnostic Test Radiology reviewed: Image reviewed, Reports reviewed - EKG Interpretation by Me EKG shows normal: Sinus rhythm, [place], Intervals, QRS Complexes Rate: Tachycardia Rhythm: A.Fib Critical Care Note - Critical Care Note Total time excluding time spent on procedures (mins): 40 Comments: 40 minutes of critical care time spent in direct contact evaluating and reevaluating the patient, treating symptoms, reviewing labs and studies and speaking with family and consultants excluding any procedures Discharge - Discharge Clinical Impression: Atrial fibrillation with RVR Metastatic lung cancer (metastasis from lung to other site) Qualifiers: Laterality: left Qualified Code(s): C34.92 - Malignant neoplasm of unspecified part of left bronchus or lung Condition: Fair Disposition: ADMITTED INPATIENT Admitting Provider: Hospitalist Unit Admitted: Telemetry
[2016-08-26 12:51] LABS: ALANINE AMINOTRANSFERASE 22 U/L (9-52); ALBUMIN 4.3 g/dL (3.5-5.0); ALKALINE PHOSPHATASE 65 U/L (38-126); ANION GAP 18 (5-19); ASPARTATE AMINO TRANSFERASE 19 U/L (14-36); BILIRUBIN,DIRECT 0.3 mg/dL (0.0-0.4); BILIRUBIN,TOTAL 0.6 mg/dL (0.2-1.3); BLOOD UREA NITROGEN 20 mg/dL (7-20); CALCIUM 9.7 mg/dL (8.4-10.2); CARBON DIOXIDE 20 mmol/L (22-30); CHLORIDE 105 mmol/L (98-107); CREATINE KINASE 25 U/L (30-135); CREATININE RESULT 0.77 mg/dL (0.52-1.25); GLUCOSE 103 mg/dL (75-110); POTASSIUM 4.5 mmol/L (3.6-5.0); SODIUM 143.3 mmol/L (137-145); TOTAL PROTEIN 7.3 g/dL (6.3-8.2)
[2016-08-26 13:04] LABS: CREATINE KINASE MB < 0.22 ng/mL (<4.55); TROPONIN I < 0.012 ng/mL
--- NOTE | 2016-08-26 13:13 | EKG REPORT ---
SEVERITY:- ABNORMAL ECG - ATRIAL FIBRILLATION WITH RAPID V-RATE ABERRANT COMPLEX, POSSIBLY SUPRAVENTRICULAR ST DEPRESSION, PROBABLY RATE RELATED : Confirmed by: Cody Sam MD 26-Aug-2016 13:13:11
[2016-08-26] MEDS ORDERED: HYDROCODONE/ACETAMINOPHEN 5-325 MG TABLET PO PRN (14:36)
[2016-08-26] MEDS ORDERED: ACETAMINOPHEN 325 MG TABLET PO PRN (14:40)
[2016-08-26] MEDS ORDERED: HALOPERIDOL LACTATE INJ 5 MG/1 ML VIAL IV ONE (14:52)
--- NOTE | 2016-08-26 15:10 | PDOC H&P ---
History of Present Illness Admission Date/PCP: 08/26/16 13:03 ALLISON ANDRES MD Patient complains of: Rapid heart rate History of Present Illness: ALIN MENDIOLA is a 80 year old female with metastatic lung cancer, atrial fibrillation, hypertension, COPD, anemia, hypothyroidism that was sent to the emergency department for evaluation of rapid heart rate by her tie mill operator Dr. Li. Patient was recently discharged from [facility] for atrial fibrillation with rapid ventricular response. She was started on Cardizem CD 120 mg daily and Xarelto 15 mg daily. She denies having any bleeding issues with the Xarelto. She states that she has been generally feeling weaker but denies dizziness or syncope. Past Medical History Cardiac Medical History: Reports: Atrial Fibrillation, Hypertension - on meds Denies: Coronary Artery Disease, Myocardial Infarction Pulmonary Medical History: Denies: Asthma, Bronchitis, Chronic Obstructive Pulmonary Disease (COPD), Pneumonia Neurological Medical History: Denies: Seizures Endocrine Medical History: Reports: Hypothyroidism Malignancy Medical History: Reports: Lung Cancer, Lymphoma, Skin Cancer GI Medical History: Reports: Hepatitis - FROM BLOOD TRANSFUSION Denies: Hiatal Hernia Musculoskeltal Medical History: Reports: Arthritis - min Psychiatric Medical History: Reports: Depression Hematology: Reports: Anemia - RECENT IV IRON Denies: Sickle Cell Disease Infectious Medical History: Reports: Hepatitis C Past Surgical History Past Surgical History: Reports: Appendectomy, Hysterectomy, Orthopedic Surgery - spinal, Other - Right chest Port-A-Cath Denies: Amputation, Mastectomy, Pacemaker Social History Information Source: Patient Lives with: Family Smoking Status: Former Smoker Frequency of Alcohol Use: None Hx Recreational Drug Use: No Drugs: None Hx Prescription Drug Abuse: No - Advance Directive Resuscitation Status: Do Not Resuscitate Family History Family History: CVA, Malignancy Parental Family History Reviewed: Yes Children Family History Reviewed: Yes Sibling(s) Family History Reviewed.: Yes Medication/Allergy Home Medications: Cilostazol [Pletal 100 mg Tablet] 100 mg PO Q12 08/26/16 Diltiazem HCl [Cardizem Cd 120 mg Capsule] 120 mg PO DAILY 08/26/16 Folic Acid [Folvite 1 mg Tablet] 1 mg PO DAILY 08/26/16 Hydrocodone/Acetaminophen [[place] 5-325 mg Tablet] 1 tab PO Q6HP PRN 08/26/16 Levothyroxine Sodium [Synthroid 0.075 mg Tablet] 0.075 mcg PO DAILY 08/26/16 Lisinopril [Prinivil 10 mg Tablet] 10 mg PO DAILY 08/26/16 Rivaroxaban [Xarelto 15 mg Tablet] 15 mg PO WSUPPER 08/26/16 Allergies/Adverse Reactions: No Known Allergies Allergy (Verified 12/18/15 09:38) Review of Systems Constitutional: ABSENT: chills, fever(s), headache(s), weight gain, weight loss Eyes: ABSENT: visual disturbances Ears: ABSENT: hearing changes Cardiovascular: ABSENT: chest pain, dyspnea on exertion, edema, orthropnea, palpitations Respiratory: ABSENT: cough, hemoptysis Gastrointestinal: ABSENT: abdominal pain, constipation, diarrhea, hematemesis, hematochezia, nausea, vomiting Genitourinary: ABSENT: dysuria, hematuria Musculoskeletal: ABSENT: joint swelling Integumentary: ABSENT: rash, wounds Neurological: ABSENT: abnormal gait, abnormal speech, confusion, dizziness, focal weakness, syncope Psychiatric: ABSENT: anxiety, depression, homidical ideation, suicidal ideation Endocrine: ABSENT: cold intolerance, heat intolerance, polydipsia, polyuria Hematologic/Lymphatic: ABSENT: easy bleeding, easy bruising Physical Exam Vital Signs: Temp Pulse Resp BP Pulse Ox 98.3 F 93 20 93/51 L 98 08/26/16 11:22 08/26/16 11:22 08/26/16 14:41 08/26/16 14:41 08/26/16 14:41 GENERAL: No acute distress HEENT: Conjunctiva clear, nonicteric, moist mucous membranes, no JVD, midline trachea RESPIRATORY: Clear to auscultation bilaterally, no wheezes, no rhonchi CARDIAC: irregular rhythm, no murmurs/gallops/rubs ABDOMEN: Soft, nondistended, nontender, positive bowel sounds, no rebound, no guarding EXTREMETIES: No edema, cyanosis, clubbing NEUROLOGIC: Alert, oriented to person/place/time, CN's grossly intact, no focal deficits SKIN: No rash, wounds PSYCH: Normal mood, normal affect Results Laboratory Results: Labs- All tests 24 hr 08/26/16 08/26/16 08/26/16 11:40 11:40 11:40 WBC 12.7 H RBC 4.12 Hgb 12.4 Hct 36.9 MCV 90 MCH 30.1 MCHC 33.6 RDW 15.3 H Plt Count 428 Seg Neutrophils % 84.0 H Lymphocytes % 9.0 L Monocytes % 5.8 Eosinophils % 0.3 Basophils % 0.9 Absolute Neutrophils 10.6 H Absolute Lymphocytes 1.1 Absolute Monocytes 0.7 Absolute Eosinophils 0.0 Absolute Basophils 0.1 Sodium 143.3 Potassium 4.5 Chloride 105 Carbon Dioxide 20 L Anion Gap 18 BUN 20 Creatinine 0.77 Est GFR ( Amer) > 60 Est GFR (Non-Af Amer) > 60 Glucose 103 Calcium 9.7 Total Bilirubin 0.6 Direct Bilirubin 0.3 Indirect Bilirubin Not Reportable Neonat Total Bilirubin Not Reportable AST 19 ALT 22 Alkaline Phosphatase 65 Creatine Kinase 25 L CK-MB (CK-2) < 0.22 Troponin I < 0.012 Total Protein 7.3 Albumin 4.3 TSH 08/26/16 11:40 WBC RBC Hgb Hct MCV MCH MCHC RDW Plt Count Seg Neutrophils % Lymphocytes % Monocytes % Eosinophils % Basophils % Absolute Neutrophils Absolute Lymphocytes Absolute Monocytes Absolute Eosinophils Absolute Basophils Sodium Potassium Chloride Carbon Dioxide Anion Gap BUN Creatinine Est GFR ( Amer) Est GFR (Non-Af Amer) Glucose Calcium Total Bilirubin Direct Bilirubin Indirect Bilirubin Neonat Total Bilirubin AST ALT Alkaline Phosphatase Creatine Kinase CK-MB (CK-2) Troponin I Total Protein Albumin TSH 0.74 Assessment & Plan - Diagnosis (1) Atrial fibrillation with RVR Is this a current diagnosis for this admission?: YesPlan: Discontinue Cardizem drip as patient is only on 2.5 mg per hour. Increase Cardizem CD to [address] in observation status and monitor on telemetry overnight. Discharge home in the morning if heart rate remained stable. Patient has a follow-up appointment with her tie mill operator Dr. Li on 09/04/2016. (2) Metastatic lung cancer (metastasis from lung to other site) Qualifiers: Laterality: left Qualified Code(s): C34.92 - Malignant neoplasm of unspecified part of left bronchus or lung Is this a current diagnosis for this admission?: YesPlan: Patient can follow-up with Dr. Andres of oncology after discharge. (3) Anemia of chronic disease Is this a current diagnosis for this admission?: Yes (4) Hypertension Is this a current diagnosis for this admission?: YesPlan: Discontinue lisinopril in order to make room for advancement of Cardizem. (5) Hypothyroidism Is this a current diagnosis for this admission?: YesPlan: Continue Synthroid. (6) Lymphoma Is this a current diagnosis for this admission?: Yes - Time Time Spent: Greater than 70 Minutes
[2016-08-26] MEDS ORDERED: RIVAROXABAN 15 MG TABLET PO SCH (17:00)
[2016-08-26] MEDS: DILTIAZEM HCL 120 MG CAP.SR.24H PO SCH (21:35)
[2016-08-26] MEDS: CILOSTAZOL 100 MG TABLET PO SCH (21:35)
--- NOTE | 2016-08-27 08:33 | EKG REPORT ---
SEVERITY:- ABNORMAL ECG - SINUS RHYTHM MULTIPLE ATRIAL PREMATURE COMPLEXES LEFT ATRIAL ABNORMALITY : Confirmed by: Cody Sam MD 27-Aug-2016 08:33:01
[2016-08-27] MEDS: DILTIAZEM HCL 120 MG CAP.SR.24H PO SCH (09:00)
[2016-08-27] MEDS: CILOSTAZOL 100 MG TABLET PO SCH (09:00)
[2016-08-27] MEDS ORDERED: LEVOTHYROXINE SODIUM 0.075 MG TABLET PO SCH ×2 (10:00)
[2016-08-27] MEDS ORDERED: FOLIC ACID 1 MG TABLET PO SCH (10:00)
[2016-08-27 10:41] VITALS: BP 134/63
--- NOTE | 2016-08-27 17:07 | PDOC DISCHARGE SUMMARY ---
General - Admit/Disc Date/PCP Admission Date/Primary Care Provider: 08/26/16 13:03 ALLISON ANDRES MD Discharge Date: 08/27/16 - Discharge Diagnosis (1) Atrial fibrillation with RVR Is this a current diagnosis for this admission?: Yes (2) Metastatic lung cancer (metastasis from lung to other site) Is this a current diagnosis for this admission?: Yes (3) Anemia of chronic disease Is this a current diagnosis for this admission?: Yes (4) Hypertension Is this a current diagnosis for this admission?: Yes (5) Hypothyroidism Is this a current diagnosis for this admission?: Yes (6) Lymphoma Is this a current diagnosis for this admission?: Yes - Additional Information Resuscitation Status: Do Not Resuscitate Discharge Diet: Cardiac Discharge Activity: Activity As Tolerated Home Medications: Cilostazol [Pletal 100 mg Tablet] 100 mg PO Q12 08/26/16 Folic Acid [Folvite 1 mg Tablet] 1 mg PO DAILY 08/26/16 Hydrocodone/Acetaminophen [[place] 5-325 mg Tablet] 1 tab PO Q6HP PRN 08/26/16 Levothyroxine Sodium [Synthroid 0.075 mg Tablet] 0.075 mcg PO DAILY 08/26/16 Rivaroxaban [Xarelto 15 mg Tablet] 15 mg PO WSUPPER 08/26/16 Diltiazem HCl [Cardizem Cd 120 mg Capsule] 120 mg PO Q12 #60 cap.sr.24h History of Present Illness Patient complains of: Rapid heart rate History of Present Illness: ALIN MENDIOLA is a 80 year old female with metastatic lung cancer, atrial fibrillation, hypertension, COPD, anemia, hypothyroidism that was sent to the emergency department for evaluation of rapid heart rate by her volunteer assistant Dr. Li. Patient was recently discharged from [facility] for atrial fibrillation with rapid ventricular response. She was started on Cardizem CD 120 mg daily and Xarelto 15 mg daily. She denies having any bleeding issues with the Xarelto. She states that she has been generally feeling weaker but denies dizziness or syncope. Hospital Course Hospital Course: Patient was admitted for atrial fibrillation with rapid ventricular response. She was x-ray sent to the emergency department from her volunteer assistant office. In the emergency department she was initially started on Cardizem drip at 2.5 mg /hour. She converted to sinus rhythm. Cardizem drip was discontinued. Her Cardizem CD was increased from 120 mg daily to 120 mg twice daily. She was observed on telemetry monitoring overnight. She remained in sinus rhythm during hospital stay. She is discharged home in stable condition. She will need to follow-up with her volunteer assistant Dr. Li on 09/04/2016 as scheduled. She will need to follow-up with Dr. Andres of oncology as scheduled for her metastatic lung cancer. Physical Exam Vital Signs: Temp Pulse Resp BP Pulse Ox 98.2 F 91 16 134/63 H 98 08/27/16 10:39 08/27/16 10:39 08/27/16 10:39 08/27/16 10:39 08/27/16 10:39 Intake & Output 08/26/16 08/27/16 08/28/16 06:59 06:59 06:59 Intake Total 697 Balance 697 Weight 48.9 kg GENERAL: No acute distress HEENT: Conjunctiva clear, nonicteric, moist mucous membranes, no JVD, midline trachea RESPIRATORY: Clear to auscultation bilaterally, no wheezes, no rhonchi CARDIAC: Regular rate and rhythm, no murmurs/gallops/rubs ABDOMEN: Soft, nondistended, nontender, positive bowel sounds, no rebound, no guarding EXTREMETIES: No edema, cyanosis, clubbing NEUROLOGIC: Alert, oriented to person/place/time, CN's grossly intact, no focal deficits SKIN: No rash, wounds PSYCH: Normal mood, normal affect Results Laboratory Results: Labs- Last Values WBC 12.7 10^3/uL (4.0-10.5) H 08/26/16 11:40 RBC 4.12 10^6/uL (3.72-5.28) 08/26/16 11:40 Hgb 12.4 g/dL (12.0-15.5) 08/26/16 11:40 Hct 36.9 % (36.0-47.0) 08/26/16 11:40 MCV 90 fl (80-97) 08/26/16 11:40 MCH 30.1 pg (27.0-33.4) 08/26/16 11:40 MCHC 33.6 g/dL (32.0-36.0) 08/26/16 11:40 RDW 15.3 % (11.5-14.0) H 08/26/16 11:40 Plt Count 428 10^3/uL (150-450) 08/26/16 11:40 Seg Neutrophils % 84.0 % (42-78) H 08/26/16 11:40 Lymphocytes % 9.0 % (13-45) L 08/26/16 11:40 Monocytes % 5.8 % (3-13) 08/26/16 11:40 Eosinophils % 0.3 % (0-6) 08/26/16 11:40 Basophils % 0.9 % (0-2) 08/26/16 11:40 Absolute Neutrophils 10.6 10^3/uL (1.7-8.2) H 08/26/16 11:40 Absolute Lymphocytes 1.1 10^3/uL (0.5-4.7) 08/26/16 11:40 Absolute Monocytes 0.7 10^3/uL (0.1-1.4) 08/26/16 11:40 Absolute Eosinophils 0.0 10^3/uL (0.0-0.6) 08/26/16 11:40 Absolute Basophils 0.1 10^3/uL (0.0-0.2) 08/26/16 11:40 Sodium 143.3 mmol/L (137-145) 08/26/16 11:40 Potassium 4.5 mmol/L (3.6-5.0) 08/26/16 11:40 Chloride 105 mmol/L (98-107) 08/26/16 11:40 Carbon Dioxide 20 mmol/L (22-30) L 08/26/16 11:40 Anion Gap 18 (5-19) 08/26/16 11:40 BUN 20 mg/dL (7-20) 08/26/16 11:40 Creatinine 0.77 mg/dL (0.52-1.25) 08/26/16 11:40 Est GFR ( Amer) > 60 (>60) 08/26/16 11:40 Est GFR (Non-Af Amer) > 60 (>60) 08/26/16 11:40 Glucose 103 mg/dL (75-110) 08/26/16 11:40 Calcium 9.7 mg/dL (8.4-10.2) 08/26/16 11:40 Total Bilirubin 0.6 mg/dL (0.2-1.3) 08/26/16 11:40 Direct Bilirubin 0.3 mg/dL (0.0-0.4) 08/26/16 11:40 Indirect Bilirubin Not Reportable 08/26/16 11:40 Neonat Total Bilirubin Not Reportable 08/26/16 11:40 AST 19 U/L (14-36) 08/26/16 11:40 ALT 22 U/L (9-52) 08/26/16 11:40 Alkaline Phosphatase 65 U/L (38-126) 08/26/16 11:40 Creatine Kinase 25 U/L (30-135) L 08/26/16 11:40 CK-MB (CK-2) < 0.22 ng/mL (<4.55) 08/26/16 11:40 Troponin I < 0.012 ng/mL 08/26/16 11:40 Total Protein 7.3 g/dL (6.3-8.2) 08/26/16 11:40 Albumin 4.3 g/dL (3.5-5.0) 08/26/16 11:40 TSH 0.74 uIU/mL (0.47-4.68) 08/26/16 11:40 Qualifiers PATEINT BEING DISCHARGED WITH ANY OF THE FOLLOWING DIAGNOSIS?: No Plan Time Spent: Less than 30 Minutes
== END 2016-08-27 11:22 | disposition home or self-care (01) ==
LOC: ER 11:12 → EH 13:03 → 3S 15:21
DX: I48.91 Unspecified atrial fibrillation (principal); C34.92 Malignant neoplasm of unspecified part of left bronchus or lung; D63.8 Anemia in other chronic diseases classified elsewhere; I10 Essential (primary) hypertension; E03.9 Hypothyroidism, unspecified; C85.90 Non-Hodgkin lymphoma, unspecified, unspecified site; M19.90 Unspecified osteoarthritis, unspecified site; F32.9 Major depressive disorder, single episode, unspecified; B19.20 Unspecified viral hepatitis C without hepatic coma; Z87.891 Personal history of nicotine dependence
CPT/HCPCS: 93005 ×2; 36591; 99291; 96365; 36415; 82553; 82550; 84443; 85025; 80053; 84484; 93010 ×2; G0378 ×2; A9270 ×8; J3490 ×4

== ENCOUNTER → 2016-09-11 | Outpatient (CLI) | payer MEDICARE, OTHER ==
[~2016-09-11] MED LIST: AMINOPHYLLINE INJ/PF 250 MG/10 ML SDV IV ONE; REGADENOSON INJ 0.4 MG/5 ML DISP.SYRIN IV ONE
--- NOTE | 2016-09-11 14:30 | DRAGON STRESS TEST REPORT ---
INTRAVENOUS LEXISCAN CARDIOLITE STRESS TEST USING SINGLE PHOTON EMMISION COMPUTERIZED TOMOGRAPHIC. DATE OF PROCEDURE: September 11, 2016 INDICATION : Chest pain CARDIAC RISK FACTORS: Hypertension RESTING EKG: Sinus rhythm, no baseline ST-T wave changes noted. STRESS EKG: No significant changes noted with LexiScan bolus REASON FOR TERMINATION: Protocol. PROCEDURE REPORT: Baseline heart rate 92 beats per minute with blood pressure of 155/89. Patient had no significant complaints. Heart rate at 2 minutes post bolus 115 with a blood pressure of 153/69. 3 minutes post bolus heart rate 115 with blood pressure of 152/74. No significant EKG changes were noted. Patient had no significant complaints during the procedure or postprocedure. Patient injected with Aminophyllin 75 mg at 3 minutes or later after Lexiscan bolus. CONCLUSIONS: Normal EKG and hemodynamic response to IV LexiScan. NUCLEAR DATA: At rest the patient was given 10.93 millicuries of technetium 99 sestamibi injected intravenously. As per protocol rest gated SPECT images were obtained. Subsequently the patient was given intravenous LexiScan at a dose of 0.4 mg in 5 mL intravenously, followed by flush with normal saline. Subsequently the stress dose of 32.6 millicuries of technetium 99 sestamibi was injected intravenously. As per protocol stress gated images were obtained. NUCLEAR INTERPRETATION: Both raw and processed data were used for interpretation. Visual, qualitative, computer-generated quantitative data was used. There was good myocardial uptake of technetium compound. Motion artifact and soft tissue attenuations were noted. Increased visceral uptake was noted. No definitive areas of transient perfusion defect noted. No definitive areas of fixed perfusion defect or scars noted. EKG gated imaging showed LV EF at 50 %, rest and stress gated EF similar visually. T. I D. ratio was 1.01. Lung heart ratio noted to be within normal limits 0.24. No significant extracardiac and abnormal radiotracer activities were noted. RV free wall uptake was noted to be WNL. IMPRESSION: Also refer to comments under nuclear interpretation. Also test results needs to be interpreted in the context of pretest probability. 1. There is no definitive scintigraphic evidence of LexiScan induced myocardial ischemia. 2. There is no definitive scintigraphic evidence of myocardial infarction/scar. 3. EKG gated imaging shows left ejection fraction of approximately 50 %. 4. Clinical correlation requested as occasionally single vessel disease or balanced ischemia could be missed. In approximately 10% of the cases Lexiscan may not cause adequate vasodilatory stress. RECOMMENDATIONS: Aggressive risk factor modification, medical therapy. Clinical correlation with echocardiogram derived ejection fraction. Inability to exercise by itself can lead to increased cardiovascular event risks. Consider cardiology consultation and or follow-up if clinically indicated. I AM AVAILABLE FOR CARDIOLOGY CONSULTATION AND FOLLOWUP IF REQUESTED BY PMD Fatuma Avalos M.D., STELLA Asset Protection Officer bio medical technician, Board certified in cardiovascular diseases, Nuclear cardiology, Echocardiography Cardiac CT and cardiac MRI Ph. [phone] [facility]
== END ==
LOC: RAD 07:04
PROVIDERS: ATTEND Internal Medicine Cardiovascular Disease
DX: R07.9 Chest pain, unspecified (principal)
CPT/HCPCS: 93017; 78452; A9500; J2785; J0280; Q9969

== ENCOUNTER → 2016-09-28 | Outpatient (CLI) | payer MEDICARE, OTHER | LOC: RAD 18:53 | PROVIDERS: ATTEND Internal Medicine | DX: C34.32 Malignant neoplasm of lower lobe, left bronchus or lung (principal) | CPT/HCPCS: 78815; A9552 ==

== ENCOUNTER 2016-10-16 07:50 | Emergency (ER) | payer MEDICARE, OTHER ==
[2016-10-16] MEDS ORDERED: DILTIAZEM HCL INJ 25 MG/5 ML VIAL ONE (08:28)
[2016-10-16] MEDS ORDERED: DILTIAZEM HCL INJ 25 MG/5 ML VIAL IV ONE ×2 (08:32)
[2016-10-16] MEDS ORDERED: DILTIAZEM HCL/D5W 125 ML IV PRN ×2 (08:37→10:15)
[2016-10-16] MEDS ORDERED: DILTIAZEM HCL/D5W 125 MG/125 ML RTUINJ IV ONE (08:38)
[2016-10-16 09:08] LABS: ABSOLUTE BASOPHILS # (AUTO) 0.1 10^3/uL (0.0-0.2); ABSOLUTE EOSINOPHILS # (AUTO) 0.2 10^3/uL (0.0-0.6); ABSOLUTE MONOCYTES (AUTO) 1.5 10^3/uL (0.1-1.4); ABSOLUTE NEUT (AUTO) 13.7 10^3/uL (1.7-8.2); BASOPHILS % (AUTO) 0.6 % (0-2); HEMATOCRIT 37.2 % (36.0-47.0); HEMOGLOBIN 12.2 g/dL (12.0-15.5); HGB HCT DIFFERENCE -0.6; LYMPHOCYTES % (AUTO) 6.1 % (13-45); MEAN CORPUSCULAR HEMOGLOBIN 29.9 pg (27.0-33.4); MEAN CORPUSCULAR HGB CONC 32.8 g/dL (32.0-36.0); MEAN CORPUSCULAR VOLUME 91 fl (80-97); MONOCYTES % (AUTO) 8.9 % (3-13); RED BLOOD COUNT 4.09 10^6/uL (3.72-5.28); RED CELL DISTRIBUTION WIDTH 14.7 % (11.5-14.0); SEGMENTED NEUTROPHILS % (AUTO) 83.4 % (42-78); WHITE BLOOD COUNT 16.4 10^3/uL (4.0-10.5)
[2016-10-16 09:17] LABS: ALANINE AMINOTRANSFERASE 21 U/L (9-52); ALKALINE PHOSPHATASE 65 U/L (38-126); ANION GAP 17 (5-19); ASPARTATE AMINO TRANSFERASE 20 U/L (14-36); BILIRUBIN,DIRECT 0.3 mg/dL (0.0-0.4); BILIRUBIN,TOTAL 0.4 mg/dL (0.2-1.3); BLOOD UREA NITROGEN 19 mg/dL (7-20); CARBON DIOXIDE 20 mmol/L (22-30); CHLORIDE 105 mmol/L (98-107); CREATININE RESULT 0.78 mg/dL (0.52-1.25); GLUCOSE 156 mg/dL (75-110); SODIUM 142.1 mmol/L (137-145)
[2016-10-16 09:21] LABS: CREATINE KINASE < 20 U/L (30-135)
[2016-10-16 09:36] LABS: CREATINE KINASE MB < 0.22 ng/mL (<4.55); TROPONIN I < 0.012 ng/mL
[2016-10-16 11:21] LABS: THYROID STIMULATING HORMONE 1.14 uIU/mL (0.47-4.68)
--- NOTE | 2016-10-16 11:29 | ER Document Report ---
ED General - General Chief Complaint: Dizziness Stated Complaint: WEAKNESS,DIFFICULTY BREATHING Time Seen by Provider: 10/16/16 08:31 Mode of Arrival: Medic Information source: Patient Notes: This is an 80-year-old female with a history of atrial fibrillation with RVR, metastatic lung cancer, anemia of chronic disease, hypertension, hypothyroidism and lymphoma. The patient presents to the ER with generalized weakness. TRAVEL OUTSIDE OF THE [place] IN LAST 30 DAYS: No - HPI Onset: Yesterday Onset/Duration: Gradual Quality of pain: No pain Severity: None Pain Level: Denies Associated symptoms: denies: Chills, Fever, Shortness of breath Exacerbated by: Denies Relieved by: Denies Similar symptoms previously: Yes Recently seen / treated by doctor: No - Related Data Allergies/Adverse Reactions: No Known Allergies Allergy (Verified 10/16/16 07:55) Past Medical History - General Information source: Patient - Social History Smoking Status: Unknown if Ever Smoked Cigarette use (# per day): No Chew tobacco use (# tins/day): No Frequency of alcohol use: None Drug Abuse: None Lives with: Family Family History: CVA, Malignancy Patient has suicidal ideation: No Patient has homicidal ideation: No - Past Medical History Cardiac Medical History: Reports: Hx Atrial Fibrillation, Hx Hypertension - on meds Denies: Hx Coronary Artery Disease, Hx Heart Attack Pulmonary Medical History: Denies: Hx Asthma, Hx Bronchitis, Hx COPD, Hx Pneumonia Neurological Medical History: Denies: Hx Cerebrovascular Accident, Hx Seizures Endocrine Medical History: Reports: Hx Hypothyroidism Renal/ Medical History: Denies: Hx Peritoneal Dialysis Malignancy Medical History: Reports: Hx Lung Cancer, Hx Lymphoma, Hx Skin Cancer GI Medical History: Reports: Hx Hepatitis - FROM BLOOD TRANSFUSION . Denies: Hx Hiatal Hernia, Hx Ulcer Musculoskeltal Medical History: Reports Hx Arthritis - min Psychiatric Medical History: Reports: Hx Depression Infectious Medical History: Reports: Hx Hepatitis - FROM BLOOD TRANSFUSION Past Surgical History: Reports: Hx Appendectomy, Hx Hysterectomy, Hx Orthopedic Surgery - spinal, Other - Right chest Port-A-Cath. Denies: Hx Mastectomy, Hx Open Heart Surgery, Hx Pacemaker - Immunizations Hx Diphtheria, Pertussis, Tetanus Vaccination: Yes Hx Pneumococcal Vaccination: 03/08/15 Review of Systems - Review of Systems Constitutional: denies: Chills, Fever EENT: No symptoms reported Cardiovascular: See HPI Respiratory: No symptoms reported Gastrointestinal: No symptoms reported Genitourinary: Dysuria Female Genitourinary: No symptoms reported Musculoskeletal: No symptoms reported Skin: No symptoms reported Hematologic/Lymphatic: No symptoms reported Neurological/Psychological: No symptoms reported Physical Exam - Vital signs Vitals: Temp Pulse Resp BP Pulse Ox 97.7 F 91 14 110/80 98 10/16/16 07:56 10/16/16 07:56 10/16/16 07:56 10/16/16 07:56 10/16/16 07:56 Notes: Physical exam: GENERAL: 80-year-old female, alert and oriented 3, no acute distress HEAD: Atraumatic, normocephalic. EYES: Pupils equal round and reactive to light, extraocular movements intact, sclera anicteric, conjunctiva are normal. ENT: TMs normal, nares patent, oropharynx clear without exudates. Moist mucous membranes. NECK: Normal range of motion, supple without lymphadenopathy or JVD. LUNGS: Breath sounds clear to auscultation bilaterally and equal. No wheezes rales or rhonchi. HEART: Tachycardic, irregular ABDOMEN: Soft, normoactive bowel sounds. No tenderness to palpation. No guarding, no rebound. No masses appreciated. EXTREMITIES: Normal range of motion, no pitting or edema. No clubbing or cyanosis. NEUROLOGICAL: Cranial nerves II through XII grossly intact. Normal speech, normal gait. PSYCH: Normal mood, normal affect. SKIN: Warm, Dry, normal turgor, no rashes or lesions noted. Course - Re-evaluation Re-evalutation: 10/16/16 14:30 Note: Patient was treated with IV Cardizem bolus followed by an IV Cardizem drip for atrial fibrillation with rapid ventricular rate. She did require some fluid bolus because of hypotension during this period. Her rate was improved by the IV Cardizem. Ultimately, she did self convert after several hours in the emergency room. She's been observed further and her cardiac enzymes have remained negative. Her urine analysis does show some evidence of infection and she does have some history of dysuria. I'm going to put her on Macrobid for 5 days. I have advised her to follow-up with her primary care doctor (I've advised her to call tomorrow) and let her know that you were started on an antibiotic for a UTI and you need to have your Coumadin followed. - Vital Signs Vital signs: Temp Pulse Resp BP Pulse Ox 97.7 F 91 18 106/94 H 98 10/16/16 07:56 10/16/16 07:56 10/16/16 11:36 10/16/16 11:36 10/16/16 11:36 - Laboratory Result Diagrams: 10/16/16 08:24 10/16/16 08:24 Laboratory results interpreted by me: 10/16/16 10/16/16 10/16/16 08:24 08:24 08:24 WBC 16.4 H RDW 14.7 H Seg Neutrophils % 83.4 H Lymphocytes % 6.1 L Absolute Neutrophils 13.7 H Absolute Monocytes 1.5 H PT 27.0 H Carbon Dioxide 20 L Glucose 156 H Creatine Kinase < 20 L Ur Leukocyte Esterase 10/16/16 11:24 WBC RDW Seg Neutrophils % Lymphocytes % Absolute Neutrophils Absolute Monocytes PT Carbon Dioxide Glucose Creatine Kinase Ur Leukocyte Esterase MODERATE H - Diagnostic Test Radiology reviewed: Image reviewed, Reports reviewed - History x-ray shows no infiltrates or effusions - EKG Interpretation by Me Rhythm: A.Fib - EKG shows atrial fibrillation with a rapid ventricular rate Discharge - Discharge Clinical Impression: atrial fibrillation with RVR, UTI Condition: Stable Disposition: HOME, SELF-CARE Additional Instructions: Regarding the atrial fibrillation: You were treated with IV Cardizem for rate control and we discussed, you converted back to normal sinus rhythm At this point, continue current medicines. As we discussed, I recommend you follow-up with [facility] in [place]. The phone number is [phone] Left them know you want to be evaluated because of your atrial fibrillation Regarding the UTI: Current recommendations for an uncomplicated UTI are for 5 days of nitrofurantoin (Macrobid). I would like you to follow-up with your primary care doctor after the UTI treatment to have a repeat urine analysis (to ensure that the treatment work). Any medicine can affect the Coumadin level, so this is another reason to follow- up with your primary care doctor. Call Dr. Brush tomorrow in the let her know that you were put on this antibiotic for a urine infection so that they can check your Coumadin level in a few days to make sure it's not rising given this new medicine. Return to the ER for any problems: Chest pain, shortness of breath any concerns or getting worse. Prescriptions: Nitrofurantoin/Nitrofuran Mac [Macrobid 100 mg Capsule] 1 tab PO BID #10 capsule Referrals: BASSEM ZIMMER MD [Primary Care Provider] - 10/20/16
[2016-10-16 11:54] LABS: APPEARANCE,URINE CLOUDY; BILIRUBIN,URINE NEGATIVE (NEGATIVE); GLUCOSE, URINE NEGATIVE (NEGATIVE); KETONES,URINE NEGATIVE (NEGATIVE); LEUKOCYTE ESTERASE,URINE MODERATE (NEGATIVE); NITRITE,URINE NEGATIVE (NEGATIVE); PROTEIN,URINE NEGATIVE (NEGATIVE); URINE SPECIFIC GRAVITY 1.019; UROBILINOGEN,URINE NEGATIVE mg/dL (<2.0)
--- NOTE | 2016-10-16 13:55 | EKG REPORT ---
SEVERITY:- ABNORMAL ECG - ATRIAL FIBRILLATION, V-RATE 124-190 LOW VOLTAGE THROUGHOUT CONSIDER ANTEROSEPTAL INFARCT REPOLARIZATION ABNORMALITY, PROB RATE RELATED : Confirmed by: Fatuma Avalos 16-Oct-2016 13:54:26
[2016-10-16 15:23] VITALS: BP 130/80
== END 2016-10-16 15:00 | disposition home or self-care (01) ==
LOC: ER 07:50
DX: I48.91 Unspecified atrial fibrillation (principal); N39.0 Urinary tract infection, site not specified; R42 Dizziness and giddiness; R06.00 Dyspnea, unspecified; I10 Essential (primary) hypertension; E03.9 Hypothyroidism, unspecified; Z79.02 Long term (current) use of antithrombotics/antiplatelets; Z85.118 Personal history of other malignant neoplasm of bronchus and lung; Z90.710 Acquired absence of both cervix and uterus; Z85.828 Personal history of other malignant neoplasm of skin
CPT/HCPCS: 93005; 99284; 96365; 96366; 36415; 84439; 82553; 82550; 83735; 84443; 85025; 85610; 80053; 81001; 84484; 71010; 93010; J3490 ×2

== ENCOUNTER → 2016-10-22 | Outpatient (CLI) | payer MEDICARE, OTHER | LOC: SP 12:12 | PROVIDERS: ATTEND Internal Medicine | DX: M79.609 Pain in unspecified limb (principal); M79.89 Other specified soft tissue disorders | CPT/HCPCS: 93971 ==

== ENCOUNTER 2016-10-26 07:31 | Emergency (ER) | payer MEDICARE, OTHER ==
--- NOTE | 2016-10-26 08:19 | ER Document Report ---
ED Neck/Back Problem - General Chief Complaint: Neck Swelling Stated Complaint: DIFFICULTY BREATHING Time Seen by Provider: 10/26/16 07:56 Mode of Arrival: Wheelchair Information source: Patient Notes: Patient presents with right-sided neck, upper back and right upper extremity swelling for the past week that worsened today. Patient additionally reports cough that has been nonproductive for the past 2 weeks. Patient does have metastatic lung cancer and is currently on immunotherapy for this. Patient reports having a Doppler ultrasound of her right upper extremity on of this week. Patient without any fever, vomiting, or diarrhea. Patient has complaints of nausea. TRAVEL OUTSIDE OF THE [place] IN LAST 30 DAYS: No - HPI Onset: Last week Timing: Worse Quality of pain: No pain Pain Level: Denies Recent injury: No Associated symptoms: Other - Right upper extremity swelling, right side of neck swelling, right upper back and clavicle area swelling Exacerbated by: Nothing Relieved by: Nothing Similar symptoms previously: No Recently seen / treated by doctor: Yes - Related Data Allergies/Adverse Reactions: No Known Allergies Allergy (Verified 10/26/16 07:38) Past Medical History - General Information source: Patient - Social History Smoking Status: Never Smoker Frequency of alcohol use: None Drug Abuse: None Lives with: Alone Family History: CVA, Malignancy Patient has suicidal ideation: No Patient has homicidal ideation: No - Past Medical History Cardiac Medical History: Reports: Hx Atrial Fibrillation, Hx Hypertension - on meds Denies: Hx Coronary Artery Disease, Hx Heart Attack Pulmonary Medical History: Denies: Hx Asthma, Hx Bronchitis, Hx COPD, Hx Pneumonia Neurological Medical History: Denies: Hx Cerebrovascular Accident, Hx Seizures Endocrine Medical History: Reports: Hx Hypothyroidism Renal/ Medical History: Denies: Hx Peritoneal Dialysis Malignancy Medical History: Reports: Hx Lung Cancer, Hx Lymphoma, Hx Skin Cancer GI Medical History: Reports: Hx Hepatitis - FROM BLOOD TRANSFUSION . Denies: Hx Hiatal Hernia, Hx Ulcer Musculoskeltal Medical History: Reports Hx Arthritis - min Psychiatric Medical History: Reports: Hx Depression Infectious Medical History: Reports: Hx Hepatitis - FROM BLOOD TRANSFUSION Past Surgical History: Reports: Hx Appendectomy, Hx Hysterectomy, Hx Orthopedic Surgery - spinal, Other - Right chest Port-A-Cath. Denies: Hx Mastectomy, Hx Open Heart Surgery, Hx Pacemaker - Immunizations Hx Diphtheria, Pertussis, Tetanus Vaccination: Yes Hx Pneumococcal Vaccination: 03/08/15 Review of Systems - Review of Systems Constitutional: No symptoms reported. denies: Fever, Recent illness EENT: No symptoms reported Cardiovascular: No symptoms reported. denies: Chest pain, Dizziness Respiratory: Cough. denies: Short of breath, Sputum Gastrointestinal: Nausea. denies: Abdominal pain, Diarrhea, Vomiting Genitourinary: No symptoms reported Female Genitourinary: No symptoms reported Musculoskeletal: Other - Upper extremity swelling. denies: Back pain Skin: No symptoms reported Hematologic/Lymphatic: Enlarged lymph nodes - right side of neck Neurological/Psychological: No symptoms reported. denies: Weakness, Headaches Physical Exam - Vital signs Vitals: Temp Pulse Resp BP Pulse Ox 97.2 F 91 18 136/73 H 94 10/26/16 07:37 10/26/16 07:37 10/26/16 07:37 10/26/16 07:37 10/26/16 07:37 - General General appearance: Appears well, Alert In distress: None - HEENT Head: Normocephalic, Atraumatic Eyes: Normal Conjunctiva: Normal Ears: Normal External canal: Normal Tympanic membrane: Normal Nasal: Normal Mouth/Lips: Normal Mucous membranes: Normal Pharynx: Normal. No: Peritonsillar abscess, Retropharyngeal abscess, Tonsillar hypertrophy, Potential airway comprom. Neck: Lymphadenopathy - right side neck swelling/fullness. No: Subcutaneous emphysema - Respiratory Respiratory status: No respiratory distress Chest status: Nontender Breath sounds: Nonproductive cough. No: Rales, Rhonchi, Stridor, Wheezing Chest palpation: Other - swelling to right trapezius area extending to area just inferior to right clavicle - Cardiovascular Rhythm: Irregularly irregular Heart sounds: S1 appreciated, S2 appreciated - Abdominal Inspection: Normal Distension: No distension Bowel sounds: Normal Tenderness: Nontender - Back Back: Normal, Nontender. No: CVA tenderness - Extremities General upper extremity: Edema - RUE 2+edema, Normal color, Normal ROM, Normal strength, Normal temperature General lower extremity: Normal inspection, Normal strength - Neurological Neuro grossly intact: Yes Cognition: Normal [place] Coma Scale Eye Opening: Spontaneous [place] Coma Scale Verbal: Oriented [place] Coma Scale Motor: Obeys Commands [place] Coma Scale Total: 15 - Psychological Associated symptoms: Normal affect, Normal mood - Skin Skin Temperature: Warm Skin Moisture: Dry Skin Color: Normal Course - Re-evaluation Re-evalutation: 10/26/16 08:[address] Davis who advises ct soft tissue neck/chest with iv contrast 10/26/16 11:[address] Andres regarding patient presentation, diagnostic test results and physical exam findings. Advises having patient follow up with radiation oncology this week as planned. Recommends discharging patient with a prescription of dexamethasone 4 mg twice a day for 2 weeks (dose read back and confirmed) and have pt have Dr. Bernard address whether or not she may need to continue on the steroid medication. Also recommend having patient call office tomorrow for outpatient follow-up 10/26/16 11:21 - Vital Signs Vital signs: Temp Pulse Resp BP Pulse Ox 98.4 F 92 18 138/85 H 94 10/26/16 11:37 10/26/16 11:37 10/26/16 11:37 10/26/16 11:37 10/26/16 11:37 - Laboratory Result Diagrams: 10/26/16 08:46 10/26/16 08:46 Laboratory results interpreted by me: 10/26/16 10/26/16 08:46 08:46 Hgb 11.2 L Hct 33.8 L RDW 14.3 H Seg Neutrophils % 84.7 H Lymphocytes % 5.2 L Glucose 125 H Labs- Entire Visit 10/26/16 10/26/16 08:46 08:46 WBC 9.1 RBC 3.79 Hgb 11.2 L Hct 33.8 L MCV 89 MCH 29.5 MCHC 33.1 RDW 14.3 H Plt Count 312 Seg Neutrophils % 84.7 H Lymphocytes % 5.2 L Monocytes % 7.4 Eosinophils % 1.4 Basophils % 1.3 Absolute Neutrophils 7.7 Absolute Lymphocytes 0.5 Absolute Monocytes 0.7 Absolute Eosinophils 0.1 Absolute Basophils 0.1 Sodium 137.8 Potassium 4.4 Chloride 102 Carbon Dioxide 25 Anion Gap 11 BUN 13 Creatinine 0.61 Est GFR ( Amer) > 60 Est GFR (Non-Af Amer) > 60 Glucose 125 H Calcium 8.9 Total Bilirubin 0.6 Direct Bilirubin 0.4 Indirect Bilirubin Not Reportable Neonat Total Bilirubin Not Reportable AST 22 ALT 24 Alkaline Phosphatase 62 Total Protein 6.8 Albumin 3.7 - Diagnostic Test Radiology reviewed: Reports reviewed Discharge - Discharge Clinical Impression: Cervical adenopathy, Pleural effusion, Arm swelling, Neck swelling Metastatic lung cancer (metastasis from lung to other site) Qualifiers: Laterality: left Qualified Code(s): C34.92 - Malignant neoplasm of unspecified part of left bronchus or lung Condition: Stable Disposition: HOME, SELF-CARE Instructions: Steroid Medication Additional Instructions: Return immediately for any new or worsening symptoms, increased swelling, difficulty breathing, difficulty swallowing or any other concerning symptoms. Followup with Dr Andres, call tomorrow to make a followup appointment Follow up with your radiation oncologist this week as planned. Dr Bernard will need to address if you need to stay on steroid medication. Prescriptions: Dexamethasone 4 mg PO BID #28 tablet Referrals: ALLISON ANDRES MD [Primary Care Provider] - Follow up tomorrow
[2016-10-26 09:01] LABS: ABSOLUTE BASOPHILS # (AUTO) 0.1 10^3/uL (0.0-0.2); ABSOLUTE EOSINOPHILS # (AUTO) 0.1 10^3/uL (0.0-0.6); ABSOLUTE LYMPHOCYTES (AUTO) 0.5 10^3/uL (0.5-4.7); ABSOLUTE MONOCYTES (AUTO) 0.7 10^3/uL (0.1-1.4); ABSOLUTE NEUT (AUTO) 7.7 10^3/uL (1.7-8.2); BASOPHILS % (AUTO) 1.3 % (0-2); EOSINOPHILS % (AUTO) 1.4 % (0-6); HEMATOCRIT 33.8 % (36.0-47.0); HEMOGLOBIN 11.2 g/dL (12.0-15.5); HGB HCT DIFFERENCE -0.2; LYMPHOCYTES % (AUTO) 5.2 % (13-45); MEAN CORPUSCULAR HEMOGLOBIN 29.5 pg (27.0-33.4); MEAN CORPUSCULAR HGB CONC 33.1 g/dL (32.0-36.0); MEAN CORPUSCULAR VOLUME 89 fl (80-97); MONOCYTES % (AUTO) 7.4 % (3-13); RED BLOOD COUNT 3.79 10^6/uL (3.72-5.28); RED CELL DISTRIBUTION WIDTH 14.3 % (11.5-14.0); SEGMENTED NEUTROPHILS % (AUTO) 84.7 % (42-78); WHITE BLOOD COUNT 9.1 10^3/uL (4.0-10.5)
[2016-10-26 09:28] LABS: ALANINE AMINOTRANSFERASE 24 U/L (9-52); ALBUMIN 3.7 g/dL (3.5-5.0); ALKALINE PHOSPHATASE 62 U/L (38-126); ANION GAP 11 (5-19); ASPARTATE AMINO TRANSFERASE 22 U/L (14-36); BILIRUBIN,DIRECT 0.4 mg/dL (0.0-0.4); BILIRUBIN,TOTAL 0.6 mg/dL (0.2-1.3); BLOOD UREA NITROGEN 13 mg/dL (7-20); CALCIUM 8.9 mg/dL (8.4-10.2); CARBON DIOXIDE 25 mmol/L (22-30); CHLORIDE 102 mmol/L (98-107); CREATININE RESULT 0.61 mg/dL (0.52-1.25); GLUCOSE 125 mg/dL (75-110); POTASSIUM 4.4 mmol/L (3.6-5.0); SODIUM 137.8 mmol/L (137-145); TOTAL PROTEIN 6.8 g/dL (6.3-8.2)
[2016-10-26] MEDS ORDERED: DEXAMETHASONE SOD PHOSPHATE INJ 4 MG/1 ML VIAL IV ONE (11:09)
[2016-10-26 11:38] VITALS: BP 138/85
== END 2016-10-26 11:38 | disposition home or self-care (01) ==
LOC: ER 07:31
DX: C34.92 Malignant neoplasm of unspecified part of left bronchus or lung (principal); C79.9 Secondary malignant neoplasm of unspecified site; J90 Pleural effusion, not elsewhere classified; R59.9 Enlarged lymph nodes, unspecified; M79.89 Other specified soft tissue disorders; R22.1 Localized swelling, mass and lump, neck; I10 Essential (primary) hypertension; R11.0 Nausea; R60.0 Localized edema; Z79.899 Other long term (current) drug therapy; Z80.9 Family history of malignant neoplasm, unspecified; Z85.828 Personal history of other malignant neoplasm of skin; Z85.72 Personal history of non-Hodgkin lymphomas; Z86.19 Personal history of other infectious and parasitic diseases; Z90.49 Acquired absence of other specified parts of digestive tract
CPT/HCPCS: 99284; 96374; 36415; 85025; 80053; 70491; 71260; J1100

== ENCOUNTER 2016-11-02 08:09 | Emergency (ER) | payer MEDICARE, OTHER ==
[2016-11-02] MEDS ORDERED: KETOROLAC TROMETHAMINE INJ/PF 30 MG/1 ML SDV IV ONE (08:32)
[2016-11-02] MEDS ORDERED: NORMAL SALINE 500 ML IV ONE ×2 (08:33→10:15)
[2016-11-02] MEDS ORDERED: DILTIAZEM HCL INJ 25 MG/5 ML VIAL IV ONE ×3 (08:43→11:25)
[2016-11-02] MEDS ORDERED: DILTIAZEM HCL/D5W 125 ML IV PRN (09:16)
[2016-11-02 09:18] LABS: HEMOGLOBIN 12.4 g/dL (12.0-15.5); HGB HCT DIFFERENCE -0.8; MEAN CORPUSCULAR HEMOGLOBIN 29.4 pg (27.0-33.4); MEAN CORPUSCULAR HGB CONC 32.7 g/dL (32.0-36.0); MEAN CORPUSCULAR VOLUME 90 fl (80-97); RED BLOOD COUNT 4.23 10^6/uL (3.72-5.28); RED CELL DISTRIBUTION WIDTH 14.8 % (11.5-14.0); WHITE BLOOD COUNT 18.6 10^3/uL (4.0-10.5)
[2016-11-02] MEDS ORDERED: DILTIAZEM HCL 120 MG CAP.SR.24H PO ONE (09:18)
[2016-11-02 09:20] LABS: PROTHROMBIN TIME 14.3 SEC (11.4-15.4)
[2016-11-02 09:21] LABS: PARTIAL THROMBOPLASTIN TIME 24.8 SEC (23.5-35.8)
[2016-11-02 09:26] LABS: ANION GAP 11 (5-19); BLOOD UREA NITROGEN 26 mg/dL (7-20); CALCIUM 8.8 mg/dL (8.4-10.2); CARBON DIOXIDE 25 mmol/L (22-30); CHLORIDE 101 mmol/L (98-107); GLUCOSE 97 mg/dL (75-110); LIPASE 222.4 U/L (23-300); MAGNESIUM 2.1 mg/dL (1.6-2.3); POTASSIUM 4.1 mmol/L (3.6-5.0)
[2016-11-02 09:27] LABS: CREATINE KINASE < 20 U/L (30-135)
--- NOTE | 2016-11-02 09:34 | RADIOLOGY REPORT (SQ) ---
EXAM DESCRIPTION: CHEST SINGLE VIEW COMPLETED DATE/TIME: 11/02/2016 9:17 am REASON FOR STUDY: sob COMPARISON: CT dated 10/26/2016. Chest x-ray dated 10/16/2016. EXAM PARAMETERS: NUMBER OF VIEWS: One view. TECHNIQUE: Single frontal radiographic view of the chest acquired. RADIATION DOSE: NA LIMITATIONS: None. FINDINGS: LUNGS AND PLEURA: Hyperinflation. Small right pleural effusion and moderate left pleural effusion. Streaky density in the perihilar left lung. No pneumothorax. MEDIASTINUM AND HILAR STRUCTURES: No masses. Contour normal. HEART AND VASCULAR STRUCTURES: Heart normal in size. Normal vasculature. BONES: No acute findings. Sclerotic lesion in the right humeral head, possible enchondroma. HARDWARE: Vascular access port. Sternal hardware. OTHER: No other significant finding. IMPRESSION: SMALL RIGHT PLEURAL EFFUSION AND MODERATE LEFT PLEURAL EFFUSION. STREAKY DENSITY IN THE PERIHILAR LEFT LUNG. WHEN COMPARED TO THE RECENT CT, THERE IS PROBABLY NO SIGNIFICANT CHANGE. TECHNICAL DOCUMENTATION: JOB ID: [id number]
[2016-11-02 09:35] LABS: BASOPHILS % (MANUAL) 0 % (0-2); EOSINOPHILS % (MANUAL) 1 % (0-6); LYMPHOCYTES % (MANUAL) 5 % (13-45); TOTAL CELLS COUNTED 100
[2016-11-02 09:36] LABS: HYPOCHROMASIA SLIGHT
[2016-11-02 10:44] LABS: APPEARANCE,URINE CLEAR; BILIRUBIN,URINE NEGATIVE (NEGATIVE); GLUCOSE, URINE NEGATIVE (NEGATIVE); KETONES,URINE NEGATIVE (NEGATIVE); LEUKOCYTE ESTERASE,URINE NEGATIVE (NEGATIVE); NITRITE,URINE NEGATIVE (NEGATIVE); PROTEIN,URINE NEGATIVE (NEGATIVE); URINE SPECIFIC GRAVITY 1.006; UROBILINOGEN,URINE NEGATIVE mg/dL (<2.0)
[2016-11-02] MEDS ORDERED: METOPROLOL TARTRATE PF/INJ 5 MG/5 ML SDV IV ONE (11:58)
[2016-11-02] MEDS ORDERED: LIDOCAINE 5% (700 MG) TRANSDERMAL ADH..PATCH TP ONE (13:12)
--- NOTE | 2016-11-02 15:29 | ER Document Report ---
ED General - General Chief Complaint: Breathing Difficulty Stated Complaint: DIFFICULTY BREATHING Time Seen by Provider: 11/02/16 08:31 TRAVEL OUTSIDE OF THE [place] IN LAST 30 DAYS: No - HPI Patient complains to provider of: Generalized weakness Notes: Patient coming in for evaluation of generalized weakness shortness of breath. Patient has a history of lung cancer with lymphoma with cervical lymphadenopathy. Patient was recently seen had a CAT scan performed. Patient was started on Decadron at that time. Patient states she has been compliant with her Decadron as of this morning she did not take any medication. Patient states she woke up transiently week therefore did not take her medications. Patient has a history of atrial fibrillation and was on Xarelto for anticoagulation. Patient takes Cardizem 120 mg twice a day for her antiarrhythmic. Upon evaluating patient patient is alert and oriented complaining of no pain at this time. No recent travel no recent changes in her medication regimen. Denies fevers chills nausea vomiting - Related Data Allergies/Adverse Reactions: No Known Allergies Allergy (Verified 10/26/16 07:38) Past Medical History - Social History Smoking Status: Unknown if Ever Smoked Chew tobacco use (# tins/day): No Frequency of alcohol use: None Drug Abuse: None Family History: CVA, Malignancy Patient has suicidal ideation: No Patient has homicidal ideation: No - Past Medical History Cardiac Medical History: Reports: Hx Atrial Fibrillation, Hx Hypertension - on meds Denies: Hx Coronary Artery Disease, Hx Heart Attack Pulmonary Medical History: Denies: Hx Asthma, Hx Bronchitis, Hx COPD, Hx Pneumonia Neurological Medical History: Denies: Hx Cerebrovascular Accident, Hx Seizures Endocrine Medical History: Reports: Hx Hypothyroidism Renal/ Medical History: Denies: Hx Peritoneal Dialysis Malignancy Medical History: Reports: Hx Lung Cancer, Hx Lymphoma, Hx Skin Cancer GI Medical History: Reports: Hx Hepatitis - FROM BLOOD TRANSFUSION . Denies: Hx Hiatal Hernia, Hx Ulcer Musculoskeltal Medical History: Reports Hx Arthritis - min Psychiatric Medical History: Reports: Hx Depression Infectious Medical History: Reports: Hx Hepatitis - FROM BLOOD TRANSFUSION Past Surgical History: Reports: Hx Appendectomy, Hx Hysterectomy, Hx Orthopedic Surgery - spinal, Other - Right chest Port-A-Cath. Denies: Hx Mastectomy, Hx Open Heart Surgery, Hx Pacemaker - Immunizations Hx Diphtheria, Pertussis, Tetanus Vaccination: Yes Hx Pneumococcal Vaccination: 03/08/15 Review of Systems - Review of Systems Constitutional: Weakness EENT: No symptoms reported Cardiovascular: No symptoms reported Respiratory: No symptoms reported Gastrointestinal: No symptoms reported Genitourinary: No symptoms reported Female Genitourinary: No symptoms reported Musculoskeletal: No symptoms reported Skin: No symptoms reported Hematologic/Lymphatic: No symptoms reported Neurological/Psychological: No symptoms reported -: Yes All other systems reviewed and negative Physical Exam - Vital signs Vitals: Temp Pulse Resp BP Pulse Ox 97.4 F 66 20 132/86 H 97 11/02/16 08:11 11/02/16 08:11 11/02/16 08:11 11/02/16 08:11 11/02/16 08:11 Interpretation: Normal - General General appearance: Appears well, Alert - HEENT Head: Normocephalic, Atraumatic Eyes: Normal Pupils: PERRL Pharynx: Normal Notes: Diffuse cervical lymphadenopathy to the extent of underneath the angle of the mandible on the right side. - Respiratory Respiratory status: No respiratory distress Chest status: Nontender Breath sounds: Normal Chest palpation: Normal - Cardiovascular Rhythm: Regular Heart sounds: Normal auscultation Murmur: No - Abdominal Inspection: Normal Distension: No distension Bowel sounds: Normal Tenderness: Nontender Organomegaly: No organomegaly - Back Back: Normal, Nontender - Extremities General upper extremity: Normal inspection, Nontender, Edema - Patient with edema to the right arm, Normal color, Normal ROM, Normal temperature General lower extremity: Normal inspection, Nontender, Normal color, Normal ROM , Normal temperature, Normal weight bearing. No: Enriqueta's sign - Neurological Neuro grossly intact: Yes Cognition: Normal Orientation: AAOx4 [place] Coma Scale Eye Opening: Spontaneous [place] Coma Scale Verbal: Oriented [place] Coma Scale Motor: Obeys Commands Ke[place] Coma Scale Total: 15 Speech: Normal Motor strength normal: LUE, RUE, LLE, RLE Sensory: Normal - Psychological Associated symptoms: Normal affect, Normal mood - Skin Skin Temperature: Warm Skin Moisture: Dry Skin Color: Normal Course - Re-evaluation Re-evalutation: 11/02/16 15:44 Patient was found to be in A. fib with RVR. Patient does have leukocytosis more likely due to steroids the patient has been taken. Patient was initially given her oral dose of Cardizem given a Cardizem bolus and started on a drip. Patient was bolused multiple times with decrease in heart rate from 172 approximately 30 however continued to be elevated. After a dose of metoprolol 2.5 mg patient did have improvement of her A. fib with RVR now currently is rate controlled. 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 Patient states understanding family states understanding. Patient is to call her [employer] after the holiday for evaluation and an appointment - Vital Signs Vital signs: Temp Pulse Resp BP Pulse Ox 97.4 F 66 18 104/72 94 11/02/16 08:11 11/02/16 08:11 11/02/16 14:02 11/02/16 14:02 11/02/16 14:02 - Laboratory Result Diagrams: 11/02/16 08:55 11/02/16 08:55 Laboratory results interpreted by me: 11/02/16 11/02/16 08:55 08:55 WBC 18.6 H RDW 14.8 H Seg Neuts % (Manual) 90 H Lymphocytes % (Manual) 5 L Abs Neuts (Manual) 16.7 H BUN 26 H Creatine Kinase < 20 L Critical Care Note - Critical Care Note Total time excluding time spent on procedures (mins): 40 Comments: Multiple evaluation patient with A. fib RVR managing Cardizem drip Discharge - Discharge Clinical Impression: Atrial fibrillation with RVR, Arm swelling, Cervical adenopathy Lymphoma Qualifiers: Lymphoma type: unspecified type Lymphoma site: unspecified region Qualified Code(s): C85.90 - Non-Hodgkin lymphoma, unspecified, unspecified site Condition: Good Disposition: HOME, SELF-CARE Instructions: Atrial Fibrillation ([facility]) Additional Instructions: Your lab work today shows no concerning etiology. I discussed her case with Dr. Oneill covering for your [employer] in the room. Suggest that she continue medication as prescribed if you feel similar symptoms again with elevated heart rate and weakness to take 1 extra dose of Cardizem. If your symptoms do not resolve within 1 hour to hour and 30 minutes to come to the ER for further evaluation Please call your [employer] office on Thursday for a follow-up appointment.
[2016-11-02 16:00] VITALS: BP 110/58
== END 2016-11-02 15:59 | disposition home or self-care (01) ==
LOC: ER 08:09
DX: C85.90 Non-Hodgkin lymphoma, unspecified, unspecified site (principal); I48.91 Unspecified atrial fibrillation; M79.89 Other specified soft tissue disorders; R59.9 Enlarged lymph nodes, unspecified; R06.02 Shortness of breath; Z79.899 Other long term (current) drug therapy
CPT/HCPCS: 36591; 99291; 96375; 96365; 96366; 36415; 82550; 83690; 83735; 85025; 85610; 85730; 80048; 81001; 84484; 71010; A9270; J3490 ×3; J1885; J7040; J1642

== ENCOUNTER 2016-11-07 07:11 | Emergency (ER) | payer MEDICARE, OTHER ==
--- NOTE | 2016-11-07 08:36 | ER Document Report ---
ED General - General Mode of Arrival: Ambulatory Information source: Patient, Relative - daughter TRAVEL OUTSIDE OF THE [place] IN LAST 30 DAYS: No - HPI Patient complains to provider of: Right arm swelling, right neck swelling, and generalized weakness Onset: This morning Associated symptoms: Other - see notes above <TONY SEYMOUR - Last Filed: 11/07/16 16:00> <DARIO MCFADDEN - Last Filed: 11/07/16 16:10> - General Chief Complaint: Irregular Pulse Stated Complaint: SHORTNESS OF BREATH Time Seen by Provider: 11/07/16 08:25 Notes: 80-year-old female with history of atrial fibrillation, hypertension, and lung cancer with bone metastases presents to the ED complaining of generalized weakness, right arm swelling, and right neck swelling that started a few days ago and palpitations that started this morning. Patient's family reports that the swelling has worsened since yesterday and claims that the swelling has been worse in the past. Daughter states that the patient is short of breath with a nonproductive cough. Patient denies fever or chest pain. Patient was here 5 days ago secondary to atrial fibrillation and was told to take Cardizem if her heart palpitations return and to return to the ED if they do not resolve within 1.5 hours. Patient took 240 mg of Cardizem prior to arrival. Daughter also reports that the patient was evaluated for left arm swelling 5 days ago where an ultrasound was performed but was found to be negative for any blood clots. Patient denies any history of blood clots, but is on Xarelto. Daughter also explains that the patient had a chest CT performed last week secondary to the radiation treatment that she is receiving for the lung cancer. Patient has received 3 radiation treatments to date with another scheduled for today. Patient was on immunotherapy, but has stopped for 1 month to begin radiation treatment. PCP: Dr. Temple Oncologist: Dr. Godwin (TONY SEYMOUR) - Related Data Allergies/Adverse Reactions: No Known Allergies Allergy (Verified 10/26/16 07:38) Past Medical History - General Information source: Patient - Social History Smoking Status: Former Smoker Chew tobacco use (# tins/day): No Frequency of alcohol use: None Drug Abuse: None Family History: CVA, Malignancy Patient has suicidal ideation: No Patient has homicidal ideation: No - Past Medical History Cardiac Medical History: Reports: Hx Atrial Fibrillation, Hx Hypertension - on meds Denies: Hx Coronary Artery Disease, Hx Heart Attack Pulmonary Medical History: Denies: Hx Asthma, Hx Bronchitis, Hx COPD, Hx Pneumonia Neurological Medical History: Denies: Hx Cerebrovascular Accident, Hx Seizures Endocrine Medical History: Reports: Hx Hypothyroidism Renal/ Medical History: Denies: Hx Peritoneal Dialysis Malignancy Medical History: Reports: Hx Lung Cancer, Hx Lymphoma, Hx Skin Cancer GI Medical History: Reports: Hx Hepatitis - FROM BLOOD TRANSFUSION . Denies: Hx Hiatal Hernia, Hx Ulcer Musculoskeltal Medical History: Reports Hx Arthritis - min Psychiatric Medical History: Reports: Hx Depression Infectious Medical History: Reports: Hx Hepatitis - FROM BLOOD TRANSFUSION Past Surgical History: Reports: Hx Appendectomy, Hx Hysterectomy, Hx Orthopedic Surgery - spinal, Other - Right chest Port-A-Cath. Denies: Hx Mastectomy, Hx Open Heart Surgery, Hx Pacemaker - Immunizations Hx Diphtheria, Pertussis, Tetanus Vaccination: Yes Hx Pneumococcal Vaccination: 03/08/15 <TONY SEYMOUR - Last Filed: 11/07/16 16:00> Review of Systems - Review of Systems Constitutional: See HPI, Weakness - generalized. denies: Fever EENT: No symptoms reported Cardiovascular: See HPI, Palpitations. denies: Chest pain Respiratory: See HPI, Cough, Short of breath Gastrointestinal: No symptoms reported Genitourinary: No symptoms reported Female Genitourinary: No symptoms reported Musculoskeletal: See HPI, Other - Right arm and right neck swelling Skin: No symptoms reported Hematologic/Lymphatic: No symptoms reported Neurological/Psychological: No symptoms reported -: Yes All other systems reviewed and negative <TONY SEYMOUR - Last Filed: 11/07/16 16:00> Physical Exam <TONY SEYMOUR - Last Filed: 11/07/16 16:00> <DARIO MCFADDEN - Last Filed: 11/07/16 16:10> - Vital signs Vitals: Temp Pulse Resp BP Pulse Ox 97.4 F 116 H 18 125/84 97 11/07/16 07:16 11/07/16 07:16 11/07/16 07:16 11/07/16 07:16 11/07/16 07:16 - Notes Notes: GENERAL: Alert, interacts well. No acute distress. HEAD: Normocephalic, atraumatic. EYES: Pupils equal, round, and reactive to light. Extraocular movements intact. ENT: Oral mucosa moist, tongue midline. NECK: Full range of motion. Supple. Trachea midline. The right neck is also edematous and erythematous which the family states is dye from radiation treatment. LUNGS: Faint crackles to base of the left lung. No wheezes, rales, or rhonchi. No respiratory distress. HEART: Regular rate and rhythm with occasional skipped beat. No murmurs, gallops , or rubs. ABDOMEN: Soft, non-tender. Non-distended. Bowel sounds present in all 4 quadrants. EXTREMITIES: Moves all 4 extremities spontaneously. Significant pitting edema to the right upper extremity from the wrist to shoulder. Right radial pulse is faint; bounding on left. No cyanosis. NEUROLOGICAL: Alert and oriented x3. Normal speech. Biceps and patellar DTRs 2+ bilaterally. PSYCH: Normal affect, normal mood. SKIN: Warm and dry. No rashes or lesions noted. (TONY SEYMOUR) Course - Laboratory Result Diagrams: 11/07/16 08:12 11/07/16 08:12 - Consults Dr. Bernard Time consulted: 08:45 Dr. Hays Time consulted: 11:35 Dr. Godwin Time consulted: 11:43 <TONY SEYMOUR - Last Filed: 11/07/16 16:00> - Laboratory Result Diagrams: 11/07/16 08:12 11/07/16 08:12 <DARIO MCFADDEN - Last Filed: 11/07/16 16:10> - Re-evaluation Re-evalutation: 11/07/16 16:03 CBC shows leukocytosis however the patient is on daily Decadron started just recently, no anemia, normal platelets, she is grossly unremarkable, cardiac enzymes negative, analysis does not show any signs of infection. Venous Doppler study shows an acute to subacute thrombus in the right IJ, CT angiogram of the chest and abdomen shows a clot in the right innominate extending into the superior vena cava. Also shows bilateral pleural effusions left greater than right. EKG is nonischemic. Did discuss this case extensively with Dr. Bernard, Dr. Capone and Dr. Hays. There is no need to admit the patient to the hospital as she is not a candidate for thrombectomy as the extensive adenopathy and partial compression of the SVC by the tumor means that the clot will simply recur, no need to switch the patient to full dose Lovenox as we can simply increase the Xarelto from 15 mg to 20 mg a day. Patient does desaturate to 88% on room air after ambulating a short distance, we have contacted a [employer] supply company in order to set up home oxygen for this patient as her oxygenation normalizes and returns to 97% while on 2 L oxygen via nasal cannula. At rest on room air she is 92%. Patient will be discharged to home. Pleural effusion is not large enough to cause hypoxia at this point (DARIO MCFADDEN) - Vital Signs Vital signs: Temp Pulse Resp BP Pulse Ox 97.4 F 116 H 24 H 123/64 96 11/07/16 07:16 11/07/16 07:16 11/07/16 14:01 11/07/16 14:01 11/07/16 14:01 - Laboratory Laboratory results interpreted by me: 11/07/16 11/07/16 08:12 08:12 WBC 18.8 H RDW 14.9 H Seg Neuts % (Manual) 89 H Lymphocytes % (Manual) 4 L Abs Neuts (Manual) 16.7 H Sodium 135.1 L BUN 31 H ALT 58 H Creatine Kinase 21 L - EKG Interpretation by Me Additional EKG results interpreted by me: 11/07/16 16:07 EKG shows sinus tachycardia at a rate of 100, multiple PACs, no evidence of atrial fibrillation, slow R-wave progression, slight ST segment depression noted in the 4, T-wave inversion noted in aVL, no ST segment elevations per my interpretation. (DARIO MCFADDEN) - Consults Dr. Bernard Reason for consultation: 11/07/16 08:45 Patient was discussed with Dr. 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 11/07/16 11:35 Patient was discussed with Dr. Bernard who suggests to talk to the hospitalists regarding admitting the patient vs. implementing changes in her medications vs. a thrombectomy. (TONY SEYMOUR) Dr. Hays Reason for consultation: 11/07/16 11:35 Patient was discussed with Dr. Hays and advises that the patient can go home on a full dose of Lovenox. (TONY SEYMOUR) Dr. Godwin Reason for consultation: 11/07/16 11:43 Patient was discussed with Dr. Godwin and he suggests to increase her Xarelto from 15 mg daily to 20 mg daily rather than changing her to Lovenox. (TONY SEYMOUR) Discharge <TONY SEYMOUR - Last Filed: 11/07/16 16:00> <DARIO MCFADDEN - Last Filed: 11/07/16 16:10> - Discharge Clinical Impression: Hypoxemia requiring supplemental oxygen, Bilateral pleural effusion, Superior vena cava syndrome, Superior vena cava thrombosis Metastatic lung cancer (metastasis from lung to other site) Qualifiers: Laterality: left Qualified Code(s): C34.92 - Malignant neoplasm of unspecified part of left bronchus or lung Internal jugular (IJ) vein thromboembolism, acute Qualifiers: Laterality: right Qualified Code(s): I82.C11 - Acute embolism and thrombosis of right internal jugular vein Condition: Stable Disposition: HOME, SELF-CARE Referrals: VALERIO SU MD [Primary Care Provider] - Follow up as needed ALLISON GODWIN MD [ACTIVE STAFF] - Follow up in 1 week (Call his office on Thursday to arrange a follow-up appointment for or Thursday.) Scribe Attestation: 11/07/16 16:10 I personally performed the services described in the documentation, reviewed and edited the documentation which was dictated to the scribe in my presence, and it accurately records my words and actions. (DARIO MCFADDEN) Scribe Documentation - Scribe Written by Mandeep:: Mandeep Diggs, 11/07/2016 1008 acting as scribe for :: Thierno <TONY SEYMOUR - Last Filed: 11/07/16 16:00>
[2016-11-07] MEDS ORDERED: DEXAMETHASONE 4 MG TABLET PO ONE (08:42)
[2016-11-07 08:51] LABS: HEMATOCRIT 41.4 % (36.0-47.0); HEMOGLOBIN 13.6 g/dL (12.0-15.5); HGB HCT DIFFERENCE -0.6; MEAN CORPUSCULAR HEMOGLOBIN 29.7 pg (27.0-33.4); MEAN CORPUSCULAR HGB CONC 32.8 g/dL (32.0-36.0); MEAN CORPUSCULAR VOLUME 90 fl (80-97); RED BLOOD COUNT 4.58 10^6/uL (3.72-5.28); RED CELL DISTRIBUTION WIDTH 14.9 % (11.5-14.0); WHITE BLOOD COUNT 18.8 10^3/uL (4.0-10.5)
--- NOTE | 2016-11-07 08:56 | EKG REPORT ---
SEVERITY:- ABNORMAL ECG - SINUS TACHYCARDIA MULTIPLE ATRIAL PREMATURE COMPLEXES BORDERLINE R WAVE PROGRESSION, ANTERIOR LEADS : Confirmed by: Fatuma Avalos 07-Nov-2016 08:56:06
[2016-11-07 08:57] LABS: ALANINE AMINOTRANSFERASE 58 U/L (9-52); ALBUMIN 3.7 g/dL (3.5-5.0); ALKALINE PHOSPHATASE 80 U/L (38-126); ANION GAP 12 (5-19); ASPARTATE AMINO TRANSFERASE 32 U/L (14-36); BILIRUBIN,DIRECT 0.3 mg/dL (0.0-0.4); BILIRUBIN,TOTAL 0.5 mg/dL (0.2-1.3); BLOOD UREA NITROGEN 31 mg/dL (7-20); CALCIUM 9.2 mg/dL (8.4-10.2); CARBON DIOXIDE 25 mmol/L (22-30); CHLORIDE 98 mmol/L (98-107); CREATINE KINASE 21 U/L (30-135); CREATININE RESULT 0.71 mg/dL (0.52-1.25); GLUCOSE 100 mg/dL (75-110); POTASSIUM 4.3 mmol/L (3.6-5.0); SODIUM 135.1 mmol/L (137-145); TOTAL PROTEIN 6.8 g/dL (6.3-8.2)
[2016-11-07 09:08] LABS: BASOPHILS % (MANUAL) 0 % (0-2); CREATINE KINASE MB 1.81 ng/mL (<4.55); EOSINOPHILS % (MANUAL) 1 % (0-6); LYMPHOCYTES % (MANUAL) 4 % (13-45); TOTAL CELLS COUNTED 100; TROPONIN I 0.013 ng/mL
[2016-11-07 09:09] LABS: ANISOCYTOSIS SLIGHT; OVALOCYTES 1+; POIKILOCYTOSIS 1+; TOXIC GRANULATION 1+
--- NOTE | 2016-11-07 10:06 | RADIOLOGY REPORT (SQ) ---
EXAM DESCRIPTION: VENOUS UNILATERAL UPPER COMPLETED DATE/TIME: 11/07/2016 9:56 am REASON FOR STUDY: RUE SWELLING COMPARISON: None. TECHNIQUE: Dynamic and static mckeon scale and color images acquired of the right arm venous system. S elected spectral images acquired with additional compression and augmentation maneuvers. The contrala teral subclavian vein and internal jugular vein were also imaged. Images stored on PACS. LIMITATIONS: None. FINDINGS: INTERNAL JUGULAR VEIN: There is subacute thrombus noted within the internal jugular vein w hich is partially recanalized. SUBCLAVIAN VEIN: Normal compression, augmentation. No visualized echogenic material on mckeon scale. No defects on color images. AXILLARY VEIN: Normal compression, augmentation. No visualized echogenic material on mckeon scale. No d efects on color images. BRACHIAL VEIN: Normal compression, augmentation. No visualized echogenic material on mckeon scale. No d efects on color images. BASILIC VEIN: Normal compression, augmentation. No visualized echogenic material on mckeon scale. No de fects on color images. CEPHALIC VEIN: Normal compression, augmentation. No visualized echogenic material on mckeon scale. No d efects on color images. OTHER: No other significant finding. CONTRALATERAL SUBCLAVIAN VEIN AND INTERNAL JUGULAR VEIN: Normal phasicity, compression and augmentation. No visualized echogenic material on mckeon scale. No de fects on color images. IMPRESSION: Thrombus noted in the right internal jugular vein which appears to be acute to subacute with some recannulized flow. No other venous thrombosis identified in the right upper extremity. TECHNICAL DOCUMENTATION: JOB ID: [id number] [employer]- All Rights Reserved
--- NOTE | 2016-11-07 10:48 | RADIOLOGY REPORT (SQ) ---
EXAM DESCRIPTION: CTA CHEST COMPLETED DATE/TIME: 11/07/2016 10:23 am REASON FOR STUDY: look for PE, RUE DVT and worsening SVC syndrome COMPARISON: 10/26/2016 TECHNIQUE: CT scan of the chest performed using helical scanning technique with dynamic intravenous contrast injection. Images reviewed with lung, soft tissue and bone windows. Reconstructed coronal and sagittal MPR images reviewed. Additional 3 dimensional post-processing performed to develop Maximal Intensity Projection images (AR P). All images stored on PACS. All CT scanners at this facility use dose modulation, iterative reconstruction, and/or weight based d osing when appropriate to reduce radiation dose to as low as reasonably achievable (ALARA). [facility]: Dose Right [facility]: CareDose [facility]: Dose Right [facility]: Teradose 4D [facility]: [employer] CONTRAST TYPE AND DOSE: 57 mL Isovue 370- low osmolar. RENAL FUNCTION: Creatinine 0.7 BUN 31 RADIATION DOSE: 27.55 mGy. LIMITATIONS: There is some respiratory motion artifact. FINDINGS: LUNGS AND PLEURA: No pulmonary infiltrate is present. There is a 7 or 8 mm nodule in the right upper lobe. This shows no change There is an increasing large left pleural effusion and smalle r right pleural effusion. There is pleural/parenchymal scarring in the left base. Tumor cannot be r uled out along the fissure. AORTA AND GREAT VESSELS: No aneurysm or dissection. There is thrombus in the right innominate vein e xtends into superior vena cava. The left subclavian vein is narrowed. There is collateral venous re turn. HEART: There appears to be a small left pericardial effusion with a maximum depth of 7 mm. PULMONARY ARTERIES: No emboli visualized in the main pulmonary arteries or the segmental branches. HILAR AND MEDIASTINAL STRUCTURES: No identified masses or abnormal nodes. HARDWARE: None in the chest. UPPER ABDOMEN: No significant findings. Limited exam. THYROID AND OTHER SOFT TISSUES: No masses. No adenopathy. BONES: No acute or significant finding. 3D MIPS: Confirm above findings. OTHER: Right axillary adenopathy is present. IMPRESSION: 1. There is no evidence of pulmonary embolus. 2. There is a 7 or 8 mm nodule in the right upper lobe. 3. There is a large left pleural effusion and smaller right pleural effusion. 4. There is thrombus in the right innominate vein that extends into the superior vena cava. The lef t subclavian vein is narrowed. 5. There is a small pericardial effusion. 6. Right axillary adenopathy is present. 7. There is scarring versus tumor in the left lower lobe. TECHNICAL DOCUMENTATION: JOB ID: [id number] Quality ID # [id number]: Final reports with documentation of one or more dose reduction techniques (e.g., Au tomated exposure control, adjustment of the mA and/or kV according to patient size, use of iterative reconstruction technique) 2010 [employer]- All Rights Reserved
[2016-11-07 11:14] LABS: APPEARANCE,URINE CLEAR; BILIRUBIN,URINE NEGATIVE (NEGATIVE); GLUCOSE, URINE NEGATIVE (NEGATIVE); KETONES,URINE NEGATIVE (NEGATIVE); LEUKOCYTE ESTERASE,URINE NEGATIVE (NEGATIVE); NITRITE,URINE NEGATIVE (NEGATIVE); PROTEIN,URINE NEGATIVE (NEGATIVE); URINE SPECIFIC GRAVITY 1.015; UROBILINOGEN,URINE NEGATIVE mg/dL (<2.0)
[2016-11-07] MEDS ORDERED: OXYCODONE HCL IR 5 MG TABLET PO ONE (14:15)
[2016-11-07] MEDS ORDERED: LIDOCAINE 5% (700 MG) TRANSDERMAL ADH..PATCH TP ONE (14:54)
[2016-11-07 17:05] VITALS: BP 124/73
== END 2016-11-07 17:33 | disposition home or self-care (01) ==
LOC: ER 07:11
DX: C34.92 Malignant neoplasm of unspecified part of left bronchus or lung (principal); I82.C11 Acute embolism and thrombosis of right internal jugular vein; I82.210 Acute embolism and thrombosis of superior vena cava; I87.1 Compression of vein; R09.02 Hypoxemia; J90 Pleural effusion, not elsewhere classified; R06.02 Shortness of breath; Z87.891 Personal history of nicotine dependence
CPT/HCPCS: 93005; 99285; 36415; 82553; 82550; 85025; 80053; 81001; 84484; 93971; 71275; 93010; A9270

== ENCOUNTER 2016-11-17 07:03 | Emergency (ER) | payer MEDICARE, OTHER ==
--- NOTE | 2016-11-17 08:33 | ER Document Report ---
ED General - General Chief Complaint: General Weakness Stated Complaint: WEAKNESS Time Seen by Provider: 11/17/16 07:39 Mode of Arrival: Wheelchair Information source: Patient, Relative - Daughter Notes: Patient presents emergency department with complaints of generalized weakness right arm pain. Daughter reports she is also more short of breath. Patient has history of lung cancer with metastases. She is currently undergoing radiation treatment. Daughter reports that patient lives alone but family member stay with her. She reports patient has been laying on loveseat and needs help to go to the restroom. She denies other symptoms such as fever vomiting diarrhea. 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 Patient did have a CTA of the chest done on November 07, 2016 which showed a left pleural effusion and smaller right pleural effusion and small pericardial effusion with a thrombus in the right innominate vein that extends into the superior vena cava also noted the left subclavian vein is narrowed. Also was noted to have 7- 8 mm nodule in the right upper lobe with scarring versus tumor in the left lower lobe. At that time the provider did discuss the patient with Dr. Dixon This patient was not a candidate for thrombectomy, Lovenox was changed to increase her Xarelto. At that time she was noted to desaturate to 88% on room air after ambulating short distances and she was placed on home 02. Family reports patient is now on 2 L of oxygen at home. Patient reports increased pain in her shoulder. Patient reports right leg pain from distal femur to knee. No recent trauma/injury. TRAVEL OUTSIDE OF THE [place] IN LAST 30 DAYS: No - HPI Onset: Other Quality of pain: Achy Severity: Severe Pain Level: 5 Associated symptoms: Shortness of breath Exacerbated by: Denies Relieved by: Denies Similar symptoms previously: Yes Recently seen / treated by doctor: Yes - Related Data Allergies/Adverse Reactions: No Known Allergies Allergy (Verified 10/26/16 07:38) Past Medical History - General Information source: Patient, Relative - daughter - Social History Smoking Status: Former Smoker Cigarette use (# per day): No Chew tobacco use (# tins/day): No Frequency of alcohol use: None Drug Abuse: None Lives with: Alone - family stays with her as needed Family History: CVA, Malignancy Patient has suicidal ideation: No Patient has homicidal ideation: No - Past Medical History Cardiac Medical History: Reports: Hx Atrial Fibrillation, Hx Hypertension - on meds Denies: Hx Coronary Artery Disease, Hx Heart Attack Pulmonary Medical History: Denies: Hx Asthma, Hx Bronchitis, Hx COPD, Hx Pneumonia Neurological Medical History: Denies: Hx Cerebrovascular Accident, Hx Seizures Endocrine Medical History: Reports: Hx Hypothyroidism Renal/ Medical History: Denies: Hx Peritoneal Dialysis Malignancy Medical History: Reports: Hx Lung Cancer, Hx Lymphoma, Hx Skin Cancer GI Medical History: Reports: Hx Hepatitis - FROM BLOOD TRANSFUSION . Denies: Hx Hiatal Hernia, Hx Ulcer Musculoskeltal Medical History: Reports Hx Arthritis - min Psychiatric Medical History: Reports: Hx Depression Infectious Medical History: Reports: Hx Hepatitis - FROM BLOOD TRANSFUSION Past Surgical History: Reports: Hx Appendectomy, Hx Hysterectomy, Hx Orthopedic Surgery - spinal, Other - Right chest Port-A-Cath. Denies: Hx Mastectomy, Hx Open Heart Surgery, Hx Pacemaker - Immunizations Hx Diphtheria, Pertussis, Tetanus Vaccination: Yes Hx Pneumococcal Vaccination: 03/08/15 Review of Systems - Review of Systems Notes: Review HPI for review of systems., All other systems negative Physical Exam - Vital signs Vitals: Temp Pulse Resp BP Pulse Ox 97.7 F 104 H 16 121/73 95 11/17/16 07:07 11/17/16 07:07 11/17/16 07:07 11/17/16 07:07 11/17/16 07:07 - Notes Notes: PHYSICAL EXAMINATION: GENERAL: frail, non toxic looking HEAD: Atraumatic, normocephalic. EYES: Pupils equal round extraocular movements intact, sclera anicteric, conjunctiva are normal. ENT: nares patent, Moist mucous membranes. NECK: Normal range of motion, supple without lymphadenopathy LUNGS: decreased, No wheezes rales or rhonchi. HEART: Regular rate ABDOMEN: Soft, no tenderness. No guarding, no rebound BACK: reports generalized achiness EXTREMITIES: Normal range of motion, right arm swelling, decreased right radial , cap refill appropriate for age, obvious deformity to right leg no erythema warmth or swelling negative Homans good femoral/pedal pulse. No cyanosis. NEUROLOGICAL: Cranial nerves grossly intact. Normal sensory/motor exams. PSYCH: Normal mood, normal affect. SKIN: Warm, Dry, normal turgor, no rashes or lesions noted Course - Re-evaluation Re-evalutation: 11/17/16 11:04 Dr. Fischer contacted regarding patient's labs chest x-ray. She advised no further treatment at this time. I discussed all results with patient and daughter. We discussed expectations. We also discussed hospice care. I encouraged them to contact Dr. Isatu Busch or Dr. Fischer to discuss any hospice request. - Vital Signs Vital signs: Temp Pulse Resp BP Pulse Ox 97.7 F 104 H 24 H 129/83 H 97 11/17/16 07:07 11/17/16 07:07 11/17/16 10:01 11/17/16 10:01 11/17/16 10:01 - Laboratory Result Diagrams: 11/17/16 08:25 11/17/16 08:25 Laboratory results interpreted by me: 11/17/16 11/17/16 11/17/16 08:25 08:25 10:35 WBC 22.7 H RDW 15.0 H Seg Neuts % (Manual) 97 H Band Neutrophils % 1 L Lymphocytes % (Manual) 0 L Monocytes % (Manual) 2 L Abs Neuts (Manual) 22.2 H Abs Lymphs (Manual) 0.0 L Sodium 128.0 L Chloride 93 L BUN 35 H Glucose 127 H AST 40 H ALT 62 H Urine Ketones TRACE H Ur Leukocyte Esterase SMALL H - Diagnostic Test Radiology reviewed: Image reviewed, Reports reviewed - EKG Interpretation by Me EKG shows normal: Sinus rhythm - Consults tasha fischer Time consulted: 08:15 Reason for consultation: 11/17/16 09:01 hx cancer, mets, update on patient in ED, discuss treatment plan 11/17/16 08:34 Dr. Fischer returned call. Reports that she discussed patient with the staff. She reports patient was seen in the office last week and this is most likely result of her progression of her disease. They discussed no treatment and hospice with the patient. Dr. Fischer will be notified for any kind of abnormal results. Consulted provider: other Discharge - Discharge Clinical Impression: Shortness of breath, Weakness, Pleural effusion Metastatic lung cancer (metastasis from lung to other site) Qualifiers: Laterality: left Qualified Code(s): C34.92 - Malignant neoplasm of unspecified part of left bronchus or lung Additional Instructions: *You have been evaluated for weakness. shortness of breath, pleural effusion *Follow up with Dr Capone, call the office today to inquire about an earlier appointment *Return to ED for increasing fever, cough, worsening condition, changes, needs Referrals: ALLISON ANDRES MD [Primary Care Provider] - Follow up in 1 week
[2016-11-17 08:40] LABS: HEMATOCRIT 38.4 % (36.0-47.0); HEMOGLOBIN 12.6 g/dL (12.0-15.5); HGB HCT DIFFERENCE -0.6; MEAN CORPUSCULAR HEMOGLOBIN 29.4 pg (27.0-33.4); MEAN CORPUSCULAR HGB CONC 32.8 g/dL (32.0-36.0); MEAN CORPUSCULAR VOLUME 89 fl (80-97); RED BLOOD COUNT 4.29 10^6/uL (3.72-5.28); WHITE BLOOD COUNT 22.7 10^3/uL (4.0-10.5)
--- NOTE | 2016-11-17 08:41 | RADIOLOGY REPORT (SQ) ---
EXAM DESCRIPTION: CHEST SINGLE VIEW COMPLETED DATE/TIME: 11/17/2016 8:23 am REASON FOR STUDY: SOB COMPARISON: CT of the chest dated 11/07/2016 chest x-ray dated 11/02/2016 EXAM PARAMETERS: NUMBER OF VIEWS: One view. TECHNIQUE: Single frontal radiographic view of the chest acquired. RADIATION DOSE: NA LIMITATIONS: None. FINDINGS: LUNGS AND PLEURA: A moderate size left pleural effusion is identified which was present on the previous studies. I cannot exclude some underlying atelectasis or infiltrate in the left lung b ase. No definite right pleural effusion is identified on the basis of the plain film although a smal l right pleural effusion was present on the previous studies. Remaining lung cabrera are clear. MEDIASTINUM AND HILAR STRUCTURES: No masses. Contour normal. HEART AND VASCULAR STRUCTURES: Cardiac silhouette is partially obscured due to adjacent densities but appears unchanged. BONES: No acute findings. The previously described sclerotic densities in the right humeral head are again identified. HARDWARE: Port-A-Cath is unchanged in position. Orthopedic hardware is again identified in the upper thoracic spine. OTHER: No other significant finding. IMPRESSION: Moderate size left pleural effusion which was present on the previous study. I cannot e xclude some underlying atelectasis or infiltrate in the left lung base. Other findings as noted abov e. TECHNICAL DOCUMENTATION: JOB ID: [id number]
[2016-11-17] MEDS ORDERED: MORPHINE SULFATE 10 MG/ML INJ IV ONE (08:51)
[2016-11-17 09:09] LABS: ALANINE AMINOTRANSFERASE 62 U/L (9-52); ALBUMIN 3.9 g/dL (3.5-5.0); ALKALINE PHOSPHATASE 89 U/L (38-126); ANION GAP 11 (5-19); ASPARTATE AMINO TRANSFERASE 40 U/L (14-36); BILIRUBIN,DIRECT 0.4 mg/dL (0.0-0.4); BLOOD UREA NITROGEN 35 mg/dL (7-20); CALCIUM 8.4 mg/dL (8.4-10.2); CARBON DIOXIDE 24 mmol/L (22-30); CHLORIDE 93 mmol/L (98-107); CREATININE RESULT 0.63 mg/dL (0.52-1.25); GLUCOSE 127 mg/dL (75-110); POTASSIUM 4.6 mmol/L (3.6-5.0); TOTAL PROTEIN 6.7 g/dL (6.3-8.2)
[2016-11-17 09:29] LABS: ANISOCYTOSIS SLIGHT; BAND NEUTROPHILS % (MANUAL) 1 % (3-5); BASOPHILS % (MANUAL) 0 % (0-2); EOSINOPHILS % (MANUAL) 0 % (0-6); HYPOCHROMASIA SLIGHT; LYMPHOCYTES % (MANUAL) 0 % (13-45); POLYCHROMASIA SLIGHT; TOTAL CELLS COUNTED 100; TOXIC GRANULATION SLIGHT; TOXIC VACUOLATION PRESENT
--- NOTE | 2016-11-17 09:45 | RADIOLOGY REPORT (SQ) ---
EXAM DESCRIPTION: FEMUR RIGHT COMPLETED DATE/TIME: 11/17/2016 9:30 am REASON FOR STUDY: PAIN, HX CANCER COMPARISON: None. NUMBER OF VIEWS: Two views. TECHNIQUE: Two radiographic images acquired of the right femur to include hip and knee in at least o ne projection. LIMITATIONS: None. FINDINGS: MINERALIZATION: Normal. BONES: No acute fracture. No worrisome bone lesions. SOFT TISSUES: No obvious swelling or foreign body. OTHER: No other significant finding. IMPRESSION: NEGATIVE STUDY OF THE RIGHT FEMUR. NO RADIOGRAPHIC EVIDENCE OF ACUTE INJURY. TECHNICAL DOCUMENTATION: JOB ID: [id number] [employer]- All Rights Reserved
--- NOTE | 2016-11-17 09:49 | RADIOLOGY REPORT (SQ) ---
EXAM DESCRIPTION: SHOULDER RIGHT 2 OR MORE VIEWS COMPLETED DATE/TIME: 11/17/2016 9:30 am REASON FOR STUDY: PAIN, HX CANCER COMPARISON: Chest x-rays dating back to August 2016 and PET-CT scan dated September 2016 NUMBER OF VIEWS: Three views. TECHNIQUE: Internal rotation, external rotation, and Y view images acquired of the right shoulder. LIMITATIONS: None. FINDINGS: MINERALIZATION: Bony structures are somewhat osteopenic. BONES: No acute fracture or dislocation. Sclerotic densities are again identified in the right humer al head unchanged from the previous studies. No abnormal metabolic activity at this site was identif ied on the recent PET-CT scan. This would suggest a benign etiology. JOINTS: No dislocation. VISUALIZED LUNGS AND RIBS: No pneumothorax. No rib fracture. SOFT TISSUES: No radiopaque foreign body. OTHER: No other significant finding. IMPRESSION: Stable sclerotic densities in the right humeral head as noted above. NO RADIOGRAPHIC LA DENCE OF ACUTE INJURY. Other findings as noted above. TECHNICAL DOCUMENTATION: JOB ID: [id number] [employer]- All Rights Reserved
--- NOTE | 2016-11-17 09:52 | EKG REPORT ---
SEVERITY:- ABNORMAL ECG - SINUS RHYTHM APCs BORDERLINE R WAVE PROGRESSION, ANTERIOR LEADS NONSPECIFIC T ABNORMALITIES, LATERAL LEADS : Confirmed by: Fatuma Avalos 17-Nov-2016 09:51:29
[2016-11-17 10:55] LABS: APPEARANCE,URINE SLIGHTLY-CLOUDY; BILIRUBIN,URINE NEGATIVE (NEGATIVE); GLUCOSE, URINE NEGATIVE (NEGATIVE); KETONES,URINE TRACE mg/dL (NEGATIVE); LEUKOCYTE ESTERASE,URINE SMALL (NEGATIVE); NITRITE,URINE NEGATIVE (NEGATIVE); PROTEIN,URINE NEGATIVE (NEGATIVE); URINE SPECIFIC GRAVITY 1.026; UROBILINOGEN,URINE NEGATIVE mg/dL (<2.0)
[2016-11-17 11:50] VITALS: BP 121/67
== END 2016-11-17 11:50 | disposition home or self-care (01) ==
LOC: ER 07:03
DX: C34.92 Malignant neoplasm of unspecified part of left bronchus or lung (principal); C77.9 Secondary and unspecified malignant neoplasm of lymph node, unspecified; C79.2 Secondary malignant neoplasm of skin; J90 Pleural effusion, not elsewhere classified; R53.1 Weakness; M79.601 Pain in right arm; M89.8X5 Other specified disorders of bone, thigh; M25.561 Pain in right knee; M25.519 Pain in unspecified shoulder; R06.02 Shortness of breath; I82.210 Acute embolism and thrombosis of superior vena cava; Z79.01 Long term (current) use of anticoagulants; Z99.81 Dependence on supplemental oxygen; Z87.891 Personal history of nicotine dependence; I10 Essential (primary) hypertension
CPT/HCPCS: 93005; 99285; 96374; 36415; 87086; 85025; 80053; 81001; 71010; 73552; 73030; 93010; J2270